=== PATIENT | male | born 1965 | race Caucasian/White ===

== ENCOUNTER 2022-03-20 21:19 | Observation (INO) | payer OTHER, SELFPAY ==
[2022-03-20 21:25] VITALS: BP 181/100; PULSE 74; RESP 16; TEMP 36.9; O2SAT 99; BMI 31.1
[2022-03-20 21:39] VITALS: BP 181/100; PULSE 69; O2SAT 97
[2022-03-20 21:42] VITALS: BMI 31.1
--- NOTE | 2022-03-20 21:42 | DI.RAD.S_ITS ---
PROCEDURE: XR HIP W PEL IF DONE LT 2V INDICATIONS: fell 4 feet to left side,unable to bear wt. TECHNIQUE: AP pelvis with lateral views of the left hip. COMPARISON: [facility], , XR SACRUM COCCYX MIN 2V, 03/20/2022, 22:01. FINDINGS: Bones: No definite fracture or dislocation in the hip. There is a suspected minimally displaced fracture in the left sacrum. No suspicious bony lesions. Soft tissues: The visualized bowel gas pattern is normal. No suspicious soft tissue calcifications. IMPRESSION: 1. No definite fracture or dislocation the hip. 2. Suspected minimally displaced left sacral fracture. Further evaluation may be obtained with CT if clinically indicated. Dictated by: Richard Chun M.D. on 03/20/2022 at 23:21 Approved by: Richard Chun M.D. on 03/20/2022 at 23:22
[2022-03-20 22:00] VITALS: PULSE 76; O2SAT 97
--- NOTE | 2022-03-20 22:05 | DI.RAD.S_ITS ---
PROCEDURE: XR SACRUM COCCYX MIN 2V INDICATIONS: fall with hip and back pain. TECHNIQUE: 3 views of the sacrum and coccyx acquired. COMPARISON: None. FINDINGS: Bones: There is a suspected minimally displaced fracture in the left sacral ala. Soft tissues: Visualized bowel gas pattern is normal. No suspicious soft tissue densities. IMPRESSION: 1. Suspected minimally displaced left sacral ala fracture. Dictated by: Richard Chun M.D. on 03/20/2022 at 23:23 Approved by: Richard Chun M.D. on 03/20/2022 at 23:24
[2022-03-20 22:30] VITALS: PULSE 75; O2SAT 95
--- NOTE | 2022-03-20 22:55 | DI.RAD.S_ITS ---
PROCEDURE: XR WRIST LT MIN 3V INDICATIONS: wrist pain TECHNIQUE: 4 views of the wrist were acquired. COMPARISON: None. FINDINGS: Bones: There is a mildly displaced fracture fragment dorsally likely reflecting a triquetral fracture. No suspicious bony lesions. Scaphoid view: The scaphoid appears intact. Soft tissues: There is mild dorsal soft tissue swelling. IMPRESSION: 1. Small dorsal fracture fragment compatible with a triquetral fracture. Dictated by: Richard Chun M.D. on 03/20/2022 at 23:46 Approved by: Richard Chun M.D. on 03/20/2022 at 23:47
[2022-03-20 23:00] VITALS: PULSE 69; O2SAT 97
[2022-03-20 23:30] VITALS: PULSE 68; O2SAT 96
--- NOTE | 2022-03-20 23:40 | DI.CT.S_ITS ---
PROCEDURE: CT PEL WO CON INDICATIONS: Fall/left-sided pain TECHNIQUE: Noncontrast 3 mm axial sections acquired through the bony pelvis, with coronal and sagittal reformatting. COMPARISON: [facility], CR, XR HIP W PEL IF DONE LT 2V, 03/20/2022, 21:53. FINDINGS: Image quality: Excellent. Bones: There is a minimally displaced fracture of the left sacral ala. There is a nondisplaced fracture line extending into the left posterior elements. Additional mildly displaced pelvic ring fractures are also demonstrated within the left superior and inferior pubic rami. The hips demonstrate no fracture or dislocation. Soft tissues: No soft tissue hematoma collections. No intraperitoneal free fluid within the visualized pelvis. Visualized musculature appears preserved. IMPRESSION: 1. Left pelvic ring fractures involving the left sacrum as well as the left superior and inferior pubic rami. Dictated by: Richard Chun M.D. on 03/21/2022 at 0:23 Approved by: Richard Chun M.D. on 03/21/2022 at 0:30
--- NOTE | 2022-03-20 23:41 | ED.LOWEXIN ---
HPI - Extremity Injury (Lower) General Chief Complaint: Extremity Injury, Lower Stated Complaint: FALL LEFT HIP INJURY Time Seen by Provider: 03/20/22 23:09 Source: patient Mode of arrival: Wheelchair History of Present Illness HPI Narrative: Patient here with . 12 hours ago was walking on the day, tripped and fell on the concrete. Landing on his left hip and hemipelvis. Also complains of left wrist pain. Denies any other injuries. Related Data Home Medications Medication Instructions Recorded Confirmed No Known Home Medications 03/21/22 03/21/22 Allergies Allergy/AdvReac Type Severity Reaction Status Date / Time No Known Drug Allergies Allergy Verified 03/20/22 22:06 Review of Systems Review of Systems Narrative: GENERAL: Denies chills, fatigue, malaise, fever, sweats. HEENT: Denies sinus pain, ear pain, sore throat RESPIRATORY: Denies dyspnea, cough CARDIOVASCULAR: Denies chest pain, palpitations GASTROINTESTINAL: Denies nausea, vomiting, abdominal pain : Denies dysuria, frequency, hematuria MUSCULOSKELETAL: Positive for muscle or bony pain SKIN: Denies rash, skin lesions NEUROLOGIC: Denies weakness, numbness ROS Unobtainable: All systems reviewed & are unremarkable except as noted in HPI and below Patient History Medical History History of cardioversion Hypertrophic cardiomyopathy Surgical History History of cardiac radiofrequency ablation Social History household members: spouse Smoking Status: Never smoker alcohol intake: former Smoking Status: Never smoker Substance Use Type: does not use Exam Narrative Exam Narrative: GENERAL: in no distress, not toxic not dyspneic HEAD: Normocephalic. EYES: Pupils equal round No scleral icterus. ENT: Mucous membranes moist. NECK: Trachea midline. CARDIOVASCULAR: Regular rate and rhythm without murmurs RESPIRATORY: Clear to auscultation. Breath sounds equal bilaterally. No wheezes, rales, or rhonchi. GASTROINTESTINAL: Abdomen soft, non-tender EXTREMITIES: No gross deformities. Pants are removed. There is no tenderness to the left hip. No bruising to the left hip. No shortening or rotation of the legs or feet. There is tenderness to the left sacral area. Examination of the knees. Able to flex and extend at both knees. Small abrasions over the knees. Examination of left wrist. Full active range of motion no gross deformity strong server developer and radial pulse with light touch intact to fingers and thumb BACK: No flank tenderness. NEURO: AOx4. SKIN: Warm and dry PSYCH: Not anxious, is cooperative Initial Vital Signs Initial Vital Signs: Vital Signs Temperature 98.4 F 03/20/22 21:25 Pulse Rate 74 03/20/22 21:25 Respiratory Rate 16 03/20/22 21:25 Blood Pressure 181/100 H 03/20/22 21:25 Pulse Oximetry 99 03/20/22 21:25 Oxygen Delivery Method 03/20/22 21:25 Course Course Course Narrative: No new issues during course of stay Orders Ordered: ED Orders 03/20/22 22:05 XR sacrum coccyx min 2V Stat 03/20/22 22:55 XR wrist LT min 3V Stat 03/20/22 23:40 CT pelvis wo con Stat 03/21/22 03:11 Consult to Physician Routine 03/21/22 03:12 Consult to Physical Therapy Evaluate & Treat 03/21/22 03:50 CBC Auto Diff [Complete Blood Count AUTO DIFF] Stat CMP [Comprehensive Metabolic Panel] Stat COVID19 -Nasal RAPID/Pre-Proc Stat 03/22/22 05:00 Basic Metabolic Panel DAILY Complete Blood Count AUTO DIFF DAILY 03/23/22 05:00 Basic Metabolic Panel DAILY Complete Blood Count AUTO DIFF DAILY Acetaminophen (Acetaminophen 325 Mg Tablet) 650 mg PO Q6H DIGNA Last Admin: 03/21/22 06:37 Dose: 650 mg Documented By: MS Docusate Sodium (Docusate 100 Mg Capsule) 100 mg PO BID [facility] Enoxaparin Sodium (Enoxaparin 40 Mg/0.4 Ml Syringe) 40 mg SUBCUT DAILY [facility] Hydromorphone HCl (Hydromorphone 1 Mg Inj) 1 mg IV Q4H PRN PRN Reason: Pain, Moderate (4-6) Last Admin: 03/21/22 03:46 Dose: 1 mg Documented By: EB Hydromorphone HCl (Hydromorphone 0.5 Mg Inj) 0.5 mg IV Q4H PRN PRN Reason: Pain, Moderate (4-6) Ondansetron HCl (Ondansetron 4 Mg/2 Ml Inj) 4 mg IV Q4HR PRN PRN Reason: Nausea And Vomiting Oxycodone HCl (Oxycodone Ir 5 Mg Tablet) 5 mg PO Q4HR PRN PRN Reason: Pain, Moderate (4-6) Last Admin: 03/21/22 06:36 Dose: 5 mg Documented By: Sennosides (Sennosides 8.6 Mg Tablet) 17.2 mg PO BEDTIME DIGNA Sodium Chloride (Sodium Chloride 0.9% Flush) 10 ml IV BID [facility] Tramadol HCl (Tramadol 50 Mg Tablet) 50 mg PO QID PRN PRN Reason: Pain, Moderate (4-6) Discontinued Medications Hydromorphone HCl (Hydromorphone 1 Mg Inj) 1 mg IV NOW ONE Stop: 03/20/22 23:41 Last Admin: 03/20/22 23:51 Dose: 1 mg Documented By: ROBIN Hydromorphone HCl (Hydromorphone 1 Mg Inj) 1 mg IV NOW ONE Stop: 03/21/22 03:26 Last Admin: 03/21/22 06:17 Dose: Not Given Documented By: Ondansetron HCl (Ondansetron 4 Mg/2 Ml Inj) 4 mg IV NOW ONE Stop: 03/20/22 23:41 Last Admin: 03/20/22 23:51 Dose: 4 mg Documented By: ROBIN Reevaluation(s) Reevaluation #1: Spoke with patient and . Agree for admit for pain control and physical therapy evaluation as well as social work. As well as orthopedic evaluation Time: 02:20 Consultations Consultation #1: Spoke with Dr. Hope, Orthopedics. Would be prudent to admit for pain control as well as social work and Physical therapy evaluation. Time: 02:02 Consultation #2: Spoke with hospitalist, Will board patient in the emergency department for admission and consult Orthopedics Time: 02:18 Vital Signs Vital signs: Vital Signs - 8 hr 03/20/22 23:00 03/20/22 23:30 03/21/22 00:09 Pulse Rate 69 68 75 Blood Pressure Pulse Oximetry 97 96 98 03/21/22 00:30 03/21/22 01:00 03/21/22 01:30 Pulse Rate 77 68 65 Blood Pressure Pulse Oximetry 96 96 96 03/21/22 02:00 03/21/22 02:30 03/21/22 02:36 Pulse Rate 62 61 Blood Pressure 159/87 H Pulse Oximetry 99 98 03/21/22 02:36 03/21/22 03:00 Pulse Rate 73 64 Blood Pressure Pulse Oximetry 97 98 MDM - Extremity Injury (Lower) Differential Diagnosis Differential diagnosis: Likely other (Wrist fracture/pelvis fracture/hip fracture/contusions/abrasions) Lab Data Result diagrams: 03/21/22 03:50 03/21/22 03:50 Imaging Data Extremity x-ray #1: Radiologist's Impression: [address] [id number] XRay Report Signed Patient: Js Robles MR#: [id number] : 1965 Acct:[id number] Age/Sex: 56 / M Date of Service: 03/20/22 Loc: ED Accession Number: [id number] ?? Procedure: XR hip w pel if done LT 2V Ordering Provider: Josue Snider MD PROCEDURE:? XR HIP W PEL IF DONE LT 2V ? INDICATIONS:? fell 4 feet to left side,unable to bear wt. ? TECHNIQUE:? AP pelvis with lateral views of the left hip. ? COMPARISON:? [facility], CR, XR SACRUM COCCYX MIN 2V, 03/20/2022, 22:01. ? FINDINGS:? ? Bones:? No definite fracture or dislocation in the hip.? There is a suspected minimally displaced fracture in the left sacrum.? No suspicious bony lesions.? ? Soft tissues:? The visualized bowel gas pattern is normal.? No suspicious soft tissue calcifications.? ? ? IMPRESSION:? ? 1. No definite fracture or dislocation the hip. ? 2. Suspected minimally displaced left sacral fracture.? Further evaluation may be obtained with CT if clinically indicated. ? ? ? Dictated by: Richard Chun M.D. on 03/20/2022 at 23:21 ? ? Approved by: Richard Chun M.D. on 03/20/2022 at 23:22 ? Extremity x-ray #2: Radiologist's Impression: [address] [address] XRay Report Signed Patient: Js Robles MR#: [id number] : 1965 Acct:[id number] Age/Sex: 56 / M Date of Service: 03/20/22 Loc: ED Accession Number: [id number] ?? Procedure: XR sacrum coccyx min 2V Ordering Provider: Josue Snider MD PROCEDURE:? XR SACRUM COCCYX MIN 2V ? INDICATIONS:? fall with hip and back pain. ? TECHNIQUE:? 3 views of the sacrum and coccyx acquired.? ? COMPARISON:? None. ? FINDINGS:? ? Bones:? There is a suspected minimally displaced fracture in the left sacral ala. ? Soft tissues:? Visualized bowel gas pattern is normal.? No suspicious soft tissue densities.? ? IMPRESSION:? ? 1. Suspected minimally displaced left sacral ala fracture. ? ? Dictated by: Richard Chun M.D. on 03/20/2022 at 23:23 ? ? Approved by: Richard Chun M.D. on 03/20/2022 at 23:24 ? Extremity x-ray #3: Radiologist's Impression: [address] Scan ReportSigned Patient: Jam Lou [facility]#: [id number]: 01/23/1963Acct:[id number]/Sex: 59 / MDate of Service: 03/20/22Loc: EDAccession Number: [id number] Procedure: CT abdomen pelvis w con Ordering Provider: Josue Snider MD PROCEDURE: CT ABDOMEN PELVIS W CON INDICATIONS: IV contrast only/left lower quadrant pain TECHNIQUE: After the administration of IV contrast, axial sections were acquired from the lung bases to the pubic symphysis. Coronal and sagittal reformats were performed. For radiation dose reduction, the following was used: automated exposure control, adjustment of mA and/or kV according to patient size. COMPARISON: [facility], CT, CT ABDOMEN PELVIS W CON, 05/27/2020, 8:43. FINDINGS: Image quality: Excellent. Lung bases: There is mild dependent atelectasis. Heart: Heart is normal in size. ABDOMEN: Liver: No mass lesion. Gallbladder: Within normal limits without calcified gallstones. Biliary ducts: No biliary ductal dilatation. Pancreas: Unremarkable. Spleen: Normal in size. Adrenal Glands: No adrenal nodules. Kidneys and Ureters: No hydronephrosis. Stomach and Bowel: Stomach and small bowel loops are normal in caliber and wall thickness. The appendix is normal in appearance. There is colonic diverticulosis throughout the colon with associated diverticular and segmental colonic wall thickening in the proximal transverse colon with extensive pericolonic fat stranding and a small amount of pericolonic free fluid. Findings are consistent with acute diverticulitis. Peritoneum: No diverticular abscess or macroscopic free air. There is a small amount of pericolonic free fluid. Ventral Wall: No hernia. Abdominal Nodes: No retroperitoneal or mesenteric adenopathy by size criteria. Vessels: Aorta and inferior vena cava are normal in size. PELVIS: Pelvic Organs: Unremarkable. Bladder: Unremarkable. Pelvic Nodes: No enlarged lymph nodes. Miscellaneous: No inguinal hernias are seen. Bones: Visualized osseous structures demonstrate no suspicious focal lesions. IMPRESSION: 1. Acute diverticulitis in the proximal transverse colon without evidence of diverticular abscess or macroscopic free air. 2. Given the degree of wall thickening in this region, consider follow-up colonoscopy to exclude an underlying mass. Dictated by: Richard Chun M.D. on 03/20/2022 at 23:39 Approved by: Richard Chun M.D. on 03/20/2022 at 23:45 CT pelvis: Radiologist's Impression: [place] [address] CT Scan Report Signed Patient: Js Robles MR#: [id number] : 1965 Acct:[id number] Age/Sex: 56 / M Date of Service: 03/20/22 Loc: ED Accession Number: [id number] ?? Procedure: CT pelvis wo con Ordering Provider: Josue Snider MD PROCEDURE:? CT PEL WO CON ? INDICATIONS:? Fall/left-sided pain ? TECHNIQUE:? Noncontrast 3 mm axial sections acquired through the bony pelvis, with coronal and sagittal reformatting.? ? COMPARISON:? [facility], CR, XR HIP W PEL IF DONE LT 2V, 03/20/2022, 21:53. ? FINDINGS:? Image quality:? Excellent.? ? Bones:? There is a minimally displaced fracture of the left sacral ala.? There is a nondisplaced fracture line extending into the left posterior elements.? Additional mildly displaced pelvic ring fractures are also demonstrated within the left superior and inferior pubic rami.? The hips demonstrate no fracture or dislocation. ? Soft tissues:? No soft tissue hematoma collections.? No intraperitoneal free fluid within the visualized pelvis.? Visualized musculature appears preserved. ? ? IMPRESSION:? ? 1. Left pelvic ring fractures involving the left sacrum as well as the left superior and inferior pubic rami. ? ? ? Dictated by: Richard Chun M.D. on 03/21/2022 at 0:23 ? ? Approved by: Richard Chun M.D. on 03/21/2022 at 0:30 ? MDM Narrative Medical decision making narrative: Appropriate for admission for physical therapy as well as for social work. Reviewed with orthopedics and hospitalist. Discharge Plan Departure Patient Disposition: Admitted as Observation Clinical Impression: Closed pelvic fracture, Fracture of left wrist Admit Date/Time: 03/21/22 03:13 Admit Provider: Betty Nielsen
[2022-03-20] MEDS: HYDROMORPHONE 1 MG INJ IV (23:51)
[2022-03-20] MEDS: ONDANSETRON 4 MG/2 ML INJ IV (23:51)
[2022-03-21] VITALS (18 sets, daily range): BP systolic 123–159; BP diastolic 68–87; PULSE 52–77; RESP 16–18; TEMP 35.9–37.1; O2SAT 93–99; BMI 31.1
[2022-03-21] MEDS: HYDROMORPHONE 1 MG INJ IV (03:46)
[2022-03-21 04:00] LABS: Add Manual Diff / Slide Review NO; Basophils Absolute Auto 0 /uL (0-100); Basophils Percent Auto 0.3 % (0-2); Eosinophils Absolute Auto 100 /uL (0-450); Eosinophils Percent Auto 1.2 % (2-4); Hematocrit 42.8 % (41-53); Hemoglobin 14.9 g/dL (13.5-17.5); Lymphocytes Absolute Auto 1400 /uL (1100-4500); Lymphocytes Percent Auto 15.7 % (25-40); Mean Corpuscular HGB Conc 34.9 % (30-36); Mean Corpuscular Hemoglobin 30.5 PG (26-34); Mean Corpuscular Volume 87.5 fL (80-100); Monocytes Absolute Auto 800 /uL (0-900); Monocytes Percent Auto 8.3 % (3-14); Neutrophils Absolute Auto 6800 /uL (1500-7000); Neutrophils Percent Auto 74.5 % (50-75); Platelet Count 162 X10^3/uL (150-400); Red Blood Cell Count 4.88 X10^6/uL (4.5-5.9); Red Cell Distribution Width 13.2 % (11.6-14.8); White Blood Cell Count 9.1 X10^3/uL (4.5-11.0)
[2022-03-21 04:12] LABS: Alanine Aminotransferase 26 IU/L (<50); Albumin 3.9 g/dL (3.5-5.0); Albumin Globulin Ratio 1.6 (1.0-2.8); Alkaline Phosphatase 50 U/L (38-126); Aspartate Aminotransferase 32 IU/L (17-59); BUN Creatinine Ratio 26.8 (6-22); Bilirubin Total 0.8 mg/dL (0.2-1.3); Blood Urea Nitrogen 19 mg/dL (9-20); Calcium 7.7 mg/dL (8.4-10.2); Carbon Dioxide 24 mmol/L (22-32); Chloride 104 mmol/L (98-107); Estimated Glomerular Filt Rate > 60 mL/min (>60); Globulin 2.5 g/dL (1.7-4.1); Glucose 110 mg/dL (70-100); HEMOLYSIS 25 (0-50); Potassium 3.7 mmol/L (3.4-5.1); Sodium 136 mmol/L (137-145); Total Protein 6.4 g/dL (6.3-8.2)
[2022-03-21 04:15] LABS: COVID19 -Nasal RAPID Negative (Negative)
--- NOTE | 2022-03-21 04:35 | P.HP_ITS ---
History of Present Illness History of Present Illness Date Patient Seen: 03/21/22 Time Patient Seen: 04:36 Chief complaint: FALL LEFT HIP INJURY Narrative: Js Robles is 56-year-old male with a history of hypertrophic cardiomyopathy apparently treated with a cardiac alcohol ablation and cardioversion several years ago was in his usual state of health when he tripped, falling on his left side and fracturing both his pelvis and his left wrist. He denies hitting his head or blacking out. He has had little bit and nausea due to the pain. Denies any dysuria diarrhea or constipation. Denies having his leg give out on him. He states that he actually tripped with his foot. Patient has had a history of the alcohol cardiac ablation, he is currently not taking any medications but sees Dr. Knowles annually and just underwent went having a new echocardiogram done. He states that the medication side effects were worse than treating the issue and that ever since he started taking a dirk supplement, his murmur has gone away. X-ray of the left wrist indicated a Small dorsal fracture fragment compatible with a triquetral fracture.CT of the pelvis indicated left pelvic ring fractures involving the left sacrum as well as the left superior and inferior pubic rami. There is also a suspected minimally displaced left sacral ala fracture noted on the sacrum and coccyx x-ray. Patient is afebrile, blood pressure 136/85, heart rate 70, respiratory 18, oxygen saturation 97% on room air he weighs 104.3 kg with a BMI of 31.1. CBC is unremarkable, sodium 136, glucose 110, calcium 7.7, and COVID-19 PCR is negative. Patient History Medical History History of cardioversion Hypertrophic cardiomyopathy Surgical History History of cardiac radiofrequency ablation Family & Social History Social History: household members spouse Prior Living Arrangements RV Safety & Behavioral: Feels Safe in Current Yes Environment Tobacco & Substance use: Smoking Status Never smoker alcohol intake former Substance Use Type does not use Meds Home Medications and Allergies Allergies Allergy/AdvReac Type Severity Reaction Status Date / Time No Known Drug Allergies Allergy Verified 03/20/22 22:06 Review of Systems Review of Systems ROS: Yes All systems reviewed with the patient and are negative except as otherwise documented Exam Vital Signs (past 8 hours): - 03/20/22 21:25 03/20/22 21:39 03/20/22 21:39 Temperature 98.4 F Pulse Rate 74 69 Respiratory Rate 16 Blood Pressure 181/100 H 181/100 H Pulse Oximetry 99 97 Oxygen Delivery Method Room Air Oxygen Flow Rate 03/20/22 22:00 03/20/22 22:30 03/20/22 23:00 Temperature Pulse Rate 76 75 69 Respiratory Rate Blood Pressure Pulse Oximetry 97 95 97 Oxygen Delivery Method Oxygen Flow Rate 03/20/22 23:30 03/21/22 00:09 03/21/22 00:30 Temperature Pulse Rate 68 75 77 Respiratory Rate Blood Pressure Pulse Oximetry 96 98 96 Oxygen Delivery Method Oxygen Flow Rate 03/21/22 01:00 03/21/22 01:30 03/21/22 02:00 Temperature Pulse Rate 68 65 62 Respiratory Rate Blood Pressure Pulse Oximetry 96 96 99 Oxygen Delivery Method Oxygen Flow Rate 03/21/22 02:30 03/21/22 02:36 03/21/22 02:36 Temperature Pulse Rate 61 73 Respiratory Rate Blood Pressure 159/87 H Pulse Oximetry 98 97 Oxygen Delivery Method Oxygen Flow Rate 03/21/22 03:00 03/21/22 03:30 03/21/22 04:09 Temperature 97.9 F Pulse Rate 64 66 70 Respiratory Rate 18 Blood Pressure 136/85 Pulse Oximetry 98 93 97 Oxygen Delivery Method Oxygen Flow Rate 0 Oxygen Delivery Method Room Air Oxygen Flow Rate 0 Narrative Exam Narrative: Gen: Alert, oriented, well-developed 56 y.o. male, NAD HEENT: normocephalic, atraumatic, conjunctiva clear, sclera non-icteric, front gums are edentulous, oral mucosa pink and moist Neck: supple, full ROM, no JVD, trachea is midline Resp: Lungs CTA, non-labored breathing CV: RRR, no murmur or rubs Abd: soft, non-tender, normoactive BTs Skin: Bronzed, no lesions or rashes, dry and intact Neuro: Alert and oriented X 4 w/no focal deficits. Speech clear and coherent. Extremities: left lower arm is splinted, moves all 4 extremities, is normally ambulatory, negative Kristal?s sign Psyche: normal mood and affect. Objective Labs Result Diagrams: 03/21/22 03:50 08/09/22 03:50 Labs: Laboratory Results - last 24 hr 03/21/22 03/21/22 03/21/22 03:50 03:50 03:50 WBC 9.1 RBC 4.88 Hgb 14.9 Hct 42.8 MCV 87.5 MCH 30.5 MCHC 34.9 RDW 13.2 Plt Count 162 Neut % (Auto) 74.5 Lymph % (Auto) 15.7 L [place] % (Auto) 8.3 Eos % (Auto) 1.2 L Baso % (Auto) 0.3 Neut # (Auto) 6800 Lymph # (Auto) 1400 [place] # (Auto) 800 Eos # (Auto) 100 Baso # (Auto) 0 Sodium 136 L Potassium 3.7 Chloride 104 Carbon Dioxide 24 BUN 19 Creatinine 0.71 Estimated GFR > 60 BUN/Creatinine Ratio 26.8 H Glucose 110 H Calcium 7.7 L Total Bilirubin 0.8 AST 32 ALT 26 Alkaline Phosphatase 50 Total Protein 6.4 Albumin 3.9 Globulin 2.5 Albumin/Globulin Ratio 1.6 SARS-CoV-2 (PCR) Negative Assessment & Plan Assessment & Plan narrative: Js Robles is a 56 y.o. male who will be observed for further evaluation of his left wrist fracture and for a PT assessment of progress towards ambulation in the setting of a pelvic ring fracture. Left wrist fracture, acute and present on admission * Dr. Hope to see the patient later today * Pain control with oral tylenol, tramadol, IV morphine and dilaudid * Prophylaxis for opioid induced constipation Pelvic ring fracture, acute and present on admission * See above * Fracture not likely operable, will require pain control and early ambulation History of hypertrophic cardiomyopathy * Patient will be monitored, will need to wait until am discharges for a telemetry box VTE Prophylaxis: Wells risk score 0 Enoxaparin 40 mg subQ once daily Bilateral SCDs Patient is placed into observation as his stay is not expected to exceed 2 midnights. FEN: IV fluids: saline lock, diet: general, labs: CBC, C/BMP, liver enzymes, Mag, PT/INR Consultants Dr. Hope, orthopedic surgery care and involvement in the patient?s care is appreciated. Dispo: probable discharge to home Code status: Full code as discussed with the patient who identifies his spouse, Sharmila as her surrogate and POA. [X] I have utilized all available immediate resources to obtain, update, or review of the patient's current medications COVID-19 COVID-19 status: Negative Result date/Date tested (Pos, Neg/Pending): 03/21/22 Scores Wells' Criteria for PE Clinical signs and symptoms of DVT: No PE is #1 Dx or equally likely: No Heart rate > 100: No Immobilization at least 3 days or surg in previous 4 weeks: No History of PE or DVT: No Hemoptysis: No Malignancy w/Treatment within 6 months or palliative: No Wells' PE Score total: 0 Quality VTE Deep Vein Thrombosis/Pulmonary Embolism Present on Admission: No MIPS - Admit I confirm the patient?s Advance Care Plan is present, Code status is documented, Surrogate decision maker is in patient?s record [If Yes, STOP here]: Yes MIPS - DC The patient has current or prior documentation of left ventricular ejection fraction (LVEF) less than 40%, or moderate or severely depressed left ventricular systolic function.: No
[2022-03-21] MEDS: OXYCODONE IR 5 MG TABLET PO ×2 (06:36→10:37)
[2022-03-21] MEDS: ACETAMINOPHEN 325 MG TABLET 650 MG PO ×4 (06:37→22:58)
[2022-03-21] MEDS: SODIUM CHLORIDE 0.9% FLUSH 10 ML IV ×2 (08:28→21:10)
[2022-03-21] MEDS: DOCUSATE 100 MG CAPSULE PO ×2 (08:28→21:10)
--- NOTE | 2022-03-21 10:59 | PT.IIE ---
Surgical History (Last Reviewed 03/21/22 @ 04:43 by SHAUNA Humphries) History of cardiac radiofrequency ablation Medical History (Last Reviewed 03/21/22 @ 04:43 by SHAUNA Humphries) History of cardioversion Hypertrophic cardiomyopathy Physical Therapy Inpatient Evaluation/Re-Eval M1 PT/OT-IP Prior Functional Status Start: 03/21/22 12:43 Freq: NEEDED Status: Active Protocol: Document 03/21/22 10:59 AB (Rec: 03/21/22 13:04 AB [id number]) Medical Review Prior Functional Status Medical History Reviewed Yes Communication able tomake needs known Social History Household Members spouse Living Arrangements RV Number of Floors (Floors) Two Floors Number of Stairs To Enter/Railing? 3 steps to enter without rails but has L side door grab bar (spouse stated that at the moment, somebody is looking into it to put a ramp on) 3 steps with R rail to get to the toilet/shower (spouse has a bedside commode for pt to use and does not have to to up to the toilet level) Home Environment Standard Height Toilet,Walk in Shower,Built-In Shower Seat Home Equipment Hand Held Shower,Grab Bars In Shower Additional Social History Comment pt plans to sleep on his recliner spouse stated that they are trying to put a ramp in right now but the other option is have a lift machine lift pt up to the house while sitting on a w/c. M2 PT-IP Current Condition Start: 03/21/22 12:43 Freq: NEEDED Status: Active Protocol: Document 03/21/22 10:59 AB (Rec: 03/21/22 13:04 AB [id number]) Physical Therapy Current Condition Current Condition Evaluation Date 03/21/22 Treatment Diagnosis L pelvic fx; L wrist fx; difficulty n walking Onset Date 03/21/22 M3 PT-IP Subjective Start: 03/21/22 12:43 Freq: NEEDED Status: Active Protocol: Document 03/21/22 10:59 AB (Rec: 03/21/22 13:04 AB [id number]) Subjective Physical Therapy Visit Type Type Initial Evaluation Visit Start Time 10:59 Visit Stop Time 12:00 Total Visit Minutes 61 Number of CUSTOMER GREETER Visits 0 Physical Therapy Visit Comments Patient Comments agreeable to do PT M4 PT-IP Mobility and Gait Start: 03/21/22 12:43 Freq: NEEDED Status: Active Protocol: Document 03/21/22 10:59 AB (Rec: 03/21/22 13:04 AB [id number]) PT-Bed Mobility Assessment Supine to Sit Supine to Sit Standby Assistance,Bedrails PT-Transfer Assessment Sit to and From Stand Sit to and from Stand Moderate Assistance,Maximum Assistance,1 Person Assistance ,Use of Upper Extremities Equipment Transfer Assistive Device Gait Belt,Platform Walker Orthotic/Prosthetic Devices or Brace: Yes Transfers Transfer Destination Chair Transfer Technique Stand Step Pivot Transfer Ability Level of Assist Moderate Assistance,Maximum Assistance,1 Person Assistance ,Use of Upper Extremities Comments Mobility Comments completed supine to sit SBA. needs increase time to complete tasks. educated on weight bearing restrictions. LLE: 50# PWB explained to pt that if unable to maintain, can do NWB for safety. pt understood. completed sit to stand max A and max cues and step transfer using PFW max a and cues. R knee varus noted. completed sit to stand from chair mod A and cues and able to ambulate using PFW ~ 4 ft forward and then backwards mod A. agreed to sit up on chair. positioned. call light and table placed within reach. caregiver training set up with spouse this afternoon at 130pm. informed spouse regarding equipement needs: w/ c, bedside commode, PFW. spouse understood and agreed. Gait Assessment Gait Gait Assistance Required: Moderate Assistance,1 Person Assist Distance (Feet) 8 Able to Maintain Weight Bearing Status Yes During Gait Assistive Devices Assistive Device Gait Belt,Platform Walker Orthotic/Prosthetic Devices or Brace: Yes Gait Deviations General Gait Pattern Decreased Stride Length, Decreased Feet Clearance Factors Limiting Gait Function Factors Limiting Gait Function Decreased Activity Tolerance, Decreased Strength,Limited Range of Motion,Pain,Poor Balance PT-Balance Assessment Sitting Balance and Reactions Static Sitting Balance Ability Good Dynamic Sitting Balance Ability Good Standing Balance and Reactions Static Standing Balance Ability Fair Dynamic Standing Balance Ability Poor Device Used PFW M5 PT-IP Objective Assessments Start: 03/21/22 12:43 Freq: NEEDED Status: Active Protocol: Document 03/21/22 10:59 AB (Rec: 03/21/22 13:04 AB [id number]) Orientation Orientation/Cognition Level of Alertness Alert Orientation Name,Place,Situation Language Function Ability No Deficits Noted Safety Awareness Decreased Safety Awareness Memory Description No Deficits Noted Gross Range of Motion Lower Extremity ROM Assessment Within Functional Limits Strength Lower Extremity Strength Assessment Left Impaired Hip 3+/5 Knee 4-/5 Muscle Tone Muscle Tone WNL Yes M6 PT-IP Treatment Start: 03/21/22 12:43 Freq: NEEDED Status: Active Protocol: Document 03/21/22 10:59 AB (Rec: 03/21/22 13:04 AB [id number]) Physical Therapy Treatment Education Education Provided Precautions,Weight Bearing Status,Safety M7 PT-IP Assessment and Plan Start: 03/21/22 12:43 Freq: NEEDED Status: Active Protocol: Document 03/21/22 10:59 AB (Rec: 03/21/22 13:04 AB [id number]) PT Summary Assessment and Plan Potential Rehabilitation Potential Fair Status of Condition at Evaluation Evolving Summary Impairments Pain,ROM,Strength,Balance, Coordination,Sensation,Tone, Cognition,Bed Mobility, Transfers,Gait,Activity Tolerance Assessment Summary pt requiring mod to max A for mobility using PFW. caregiver training set up at 130 pm this afternoon. will continue to assess progress. pt and spouse are aware of equipement needs . pt also will benefit from HHPT. Goals Bed Mobility Goal Independent Transfer Goal Independent,Front Wheeled Walker Gait Goal Independent,Front Wheel Walker Gait Distance 50 Other Goals ambulation goals using PFW Days to Meet Goals 5 Frequency of Treatment Frequency Of Treatment Twice a Day Treatment Plan Physical Therapy Treatment Plan Bed Mobility Training,Transfer Training,Gait Training, Therapeutic Exercise,Balance Retraining,Post Op Education, Discharge Planning,Hot or Cold Pack,Neuromuscular Re-ed, Coordination Retraining,Manual Therapy Weight Bearing Status Weight Bearing Status Non-Weight Bearing Allowed Weight Bearing Amount (enter % LUE: NWB or #) (%) LLE: 50# PWB: opted NWB as pt unable to safely do PWB: pt able to maintain NWB. Recommendations To Nursing Amount of Assist Needed 1 Person Assist Discharge Recommendations PT Discharge Recommendations Home with 05/03 Assist Available,Home Health Equipment Needed for Home Before PFW Discharge Transportation Needs at Discharge Private Vehicle
--- NOTE | 2022-03-21 11:15 | CM.DANOTE ---
Patient is a 56 yo male who was admitted on 03/21/22 for GLF/Hip injury. Pt has PRE DIM for insurance and his PCP is not listed. EMR was reviewed. Per MD, pt with a hx of cardio ablation and tripped and fell with a pelvic hip fx and wrist fx. Ortho to consult and Dr Hope met bedside and confirms no surgical intervention needed at this time and will provide weightbearing status and requested RN to order PT/OT to determine d/c planning needs. SW met bedside with pt and spouse and explained role and they confirm they live in [place] in a trailer on some property and have adult son and Dtr who also live on the property but in their own trailers but could be available for assist if needed. Spouse is an ROASTER SUPERVISOR who used to be a type copy examiner at a hospital and now works time analysis clerk at a [employer] and therefore will be gone 4 days a week for 10 hour shifts but confirms other local family can assist. Pt is independent at baseline with ADLs and drives and denies any hx of HH or SNF. SW discussed PT/OT evals towards determining d/c planning needs and discussed HH and SNF. Pt and spouse state preference is home with HH and currently have someone creating a w/c ramp into their trailer and spouse has a friend dropping off a bedside commode. Pt and spouse aware that PT/OT will be completing CG training prior to d/c to confirm pt safe for home. Plan: SW to follow closely for PT/OT eval and recommendations towards determining likely home with HH vs potential SNF pending pt's progress and needs. YARELY Christianson Discharge Planning/Care Management CM Discharge Assessment Start: 03/21/22 11:12 Freq: Status: Active Protocol: Document 03/21/22 11:13 BF (Rec: 03/21/22 11:15 BF [id number]) Discharge Planning Assessment Assigned Bar Tacker YARELY Chavez DPOA/Assigned Designee Name spouse Sharmila Contact Information [phone] Advance Directives? No Advance Directives on File No History Provided By Patient,Significant Other, Medical Record Has Patient been admitted in last 30 No days? Prior Living Arrangements RV Household Members spouse Type of transporation used prior to Drives own vehicle admit Independent with ADL's Yes Is patient alert and oriented? Yes Caregiver for Another No Patient/Family Preference Home with Home Health Barriers to Discharge No Discharge Plan Home with Home Health Community Services Physical Therapy,Occupational Therapy Transportation Arrangement Spouse bedside and plans to transport if safe Referrals Initiated Home Health Medicare Choice List Provided Yes Whiteboard Updated in Patient Room with Yes name and ext. # of Bar Tacker Review Status In Process Please Provide Date Initial DC 03/21/22 Assessment Was Performed Next Review Type Continued Stay Review
[2022-03-21] MEDS: HYDROMORPHONE 0.5 MG INJ IV (11:39)
--- NOTE | 2022-03-21 11:51 | OT.IPNOTE ---
Awaiting consult from Ortho for weight bearing status for pt needs, To check on the pt tomorrow for OT eval.
--- NOTE | 2022-03-21 12:20 | OT.IPNOTE ---
Went to see pt and already has left volar splint on. Able to talk to pt and his regarding equipment needs for home -use FWW with left platform, wc, bsc, airways control specialist, and urinal. Pt's given DME equipment list. Pt states already has a lift to get him into the trailer within 3 steps. Pt just getting lunch and to work on showering and dressing needs with pt tomorrow. NO charge. Per pt states doctor states that pt is 50lb weight bearing and not to but weight on his left wrist. NO charge.
--- NOTE | 2022-03-21 12:33 | OT.IP.TRT ---
Spoke at length with pt and his regarding OT needs and equipment of BSC, WC, rubber cutter and shape carver, FWW and platform for DAHLIAE,- able to give pt's equipment list for DME. Pt's lunch just came. To work with pt tomorrow regarding showering needs. NO charge.
--- NOTE | 2022-03-21 13:55 | PT.IPTN ---
Physical Therapy Treatment Note M2 PT-IP Current Condition Start: 03/21/22 12:43 Freq: NEEDED Status: Active Protocol: Document 03/21/22 10:59 AB (Rec: 03/21/22 13:04 AB [id number]) Physical Therapy Current Condition Current Condition Evaluation Date 03/21/22 Treatment Diagnosis L pelvic fx; L wrist fx; difficulty n walking Onset Date 03/21/22 M3 PT-IP Subjective Start: 03/21/22 12:43 Freq: NEEDED Status: Active Protocol: Document 03/21/22 13:32 KS (Rec: 03/21/22 14:58 KS [id number]) Subjective Physical Therapy Visit Type Type Treatment Note Visit Start Time 13:32 Visit Stop Time 13:55 Total Visit Minutes 23 Number of SITE DAMAGE PREVENTION TECHNICIAN Visits 1 Physical Therapy Visit Comments Patient Comments agreeable to do PT. present for caregiver training . M4 PT-IP Mobility and Gait Start: 03/21/22 12:43 Freq: NEEDED Status: Active Protocol: Document 03/21/22 13:32 KS (Rec: 03/21/22 14:58 KS [id number]) PT-Bed Mobility Assessment Supine to Sit Supine to Sit Standby Assistance,1 Person Assistance,Head of Bed Elevated,Bedrails Sit to Supine Sit to Supine Moderate Assistance,1 Person Assistance,Head of Bed Elevated,Bedrails Scooting Scooting to Edge of Bed Standby Assistance Scooting Up and Down in Bed Standby Assistance PT-Transfer Assessment Sit to and From Stand Sit to and from Stand Minimal Assistance,1 Person Assistance,Use of Upper Extremities Equipment Transfer Assistive Device Gait Belt,Platform Walker Orthotic/Prosthetic Devices or Brace: Yes Transfers Transfer Destination Bed Transfer Technique Pt ambulated w/ FWW Transfer Ability Level of Assist Minimal Assistance,Moderate Assistance,1 Person Assistance ,Use of Upper Extremities Comments Mobility Comments Pt in bed upon arrival w/ in room. Agreeable to mobilize w/ PT. Pt able to sup <>sit SBA w/ bed rails and HOB elevated but needed increased times and cues to avoid WB on LUE. Pt scooted EOB SBA. Demonstrated gaitbelt application and FWW guarding to pts , pt sit<>Stand w/ PFW Min A and cues. Pt able to maintain 50# WB when standing and then ambulated ~12 ft w/ PFW. Pt needed to return to bed d/t fatigue, primarily was NWB to TTWB while ambulating. Mod A for LE guidance into bed by pts , pt able to reposition himself in bed using RLE to bridge and scoot. Pt only able to lift LLE very minimally at this time. Discussed at home safety, pts acquiring PFW, BSC, w/c and lift to get pt inside house. They are having ramp installed for w/c access. Gait Assessment Gait Gait Assistance Required: Minimum Assistance,1 Person Assist Distance (Feet) 12 Able to Maintain Weight Bearing Status Yes During Gait Assistive Devices Assistive Device Gait Belt,Platform Walker Orthotic/Prosthetic Devices or Brace: Yes Gait Deviations General Gait Pattern Decreased Stride Length, Decreased Feet Clearance Factors Limiting Gait Function Factors Limiting Gait Function Decreased Activity Tolerance, Decreased Strength,Limited Range of Motion,Pain,Poor Balance Comments Gait Comments Please refer to mobility section for details. Stair Climbing Assessment Comments Stair Climbing Comments Not assessed - pt will be lifted up stairs using w/c lift? PT-Balance Assessment Sitting Balance and Reactions Static Sitting Balance Ability Good Dynamic Sitting Balance Ability Good Standing Balance and Reactions Static Standing Balance Ability Fair Dynamic Standing Balance Ability Fair Device Used PFW M5 PT-IP Objective Assessments Start: 03/21/22 12:43 Freq: NEEDED Status: Active Protocol: Document 03/21/22 10:59 AB (Rec: 03/21/22 13:04 AB [id number]) Orientation Orientation/Cognition Level of Alertness Alert Orientation Name,Place,Situation Language Function Ability No Deficits Noted Safety Awareness Decreased Safety Awareness Memory Description No Deficits Noted Gross Range of Motion Lower Extremity ROM Assessment Within Functional Limits Strength Lower Extremity Strength Assessment Left Impaired Hip 3+/5 Knee 4-/5 Muscle Tone Muscle Tone WNL Yes M6 PT-IP Treatment Start: 03/21/22 12:43 Freq: NEEDED Status: Active Protocol: Document 03/21/22 13:32 KS (Rec: 03/21/22 14:58 KS [id number]) Physical Therapy Treatment Exercises Exercises Straight Leg Raises Education Education Provided Precautions,Weight Bearing Status,Safety Other Treatments Other Treatment Performed SL bridges M7 PT-IP Assessment and Plan Start: 03/21/22 12:43 Freq: NEEDED Status: Active Protocol: Document 03/21/22 13:32 KS (Rec: 03/21/22 14:58 KS [id number]) PT Summary Assessment and Plan Potential Rehabilitation Potential Fair Summary Impairments Pain,ROM,Strength,Balance, Coordination,Sensation,Tone, Cognition,Bed Mobility, Transfers,Gait,Activity Tolerance Assessment Summary Pt w/ improved mobility this PM but still very limited by weakness and low tolerance for activity. Able to ambulate 12 ft w/ PFW Min A. Completed caregiver training w/ pt who was able to apply gait belt ad assist pt w/ transfers . Pt reluctant to accept assistance and needs cues to maintain NWB on LUE but maintains 50# PWB on LLE throughout. is acquiring all necessary DME and has lift to get pt inside of house and w/c ramp is being installed. Pt will benefit from HHPT to improve strength, activity tolerance, and functional mobility independence. Goals Bed Mobility Goal Independent Transfer Goal Independent,Front Wheeled Walker Gait Goal Independent,Front Wheel Walker Gait Distance 50 Other Goals ambulation goals using PFW Days to Meet Goals 5 Frequency of Treatment Frequency Of Treatment Twice a Day Treatment Plan Physical Therapy Treatment Plan Bed Mobility Training,Transfer Training,Gait Training, Therapeutic Exercise,Balance Retraining,Post Op Education, Discharge Planning,Hot or Cold Pack,Neuromuscular Re-ed, Coordination Retraining,Manual Therapy Weight Bearing Status Weight Bearing Status Non-Weight Bearing Allowed Weight Bearing Amount (enter % LUE: NWB or #) (%) LLE: 50# PWB: opted NWB as pt unable to safely do PWB: pt able to maintain NWB. Recommendations To Nursing Amount of Assist Needed 1 Person Assist Discharge Recommendations PT Discharge Recommendations Home with 05/03 Assist Available,Home Health Equipment Needed for Home Before PFW Discharge
[2022-03-21] MEDS: OXYCODONE IR 5 MG TABLET 10 MG PO ×2 (16:11→22:58)
--- NOTE | 2022-03-21 18:15 | P.HP_ITS ---
History of Present Illness History of Present Illness Date Patient Seen: 03/21/22 Time Patient Seen: 11:30 Chief complaint: FALL LEFT HIP INJURY Narrative: This is a 56-year-old gentleman who fell at home and noted the acute onset of left hip pain and some left arm pain. He notes ongoing substantial left hip and pelvic pain. Was evaluated in the emergency room and admitted as he was unable to mobilize. He notes he is comfortable resting in bed but really is having difficulty with mobility even basic bed mobility. His left wrist is comfortable in a splint. He notes he was not lightheaded did not have any chest pain or other symptoms prior to his fall. Patient History Medical History History of cardioversion Hypertrophic cardiomyopathy Surgical History History of cardiac radiofrequency ablation Family & Social History Social History: household members spouse Prior Living Arrangements RV Safety & Behavioral: Feels Safe in Current Yes Environment Tobacco & Substance use: Smoking Status Never smoker alcohol intake former Substance Use Type does not use Meds Home Medications and Allergies Home Medications Medication Instructions Recorded Confirmed Type walker #1 ea 03/21/22 Rx walker #1 ea 03/21/22 Rx Allergies Allergy/AdvReac Type Severity Reaction Status Date / Time No Known Drug Allergies Allergy Verified 03/20/22 22:06 Review of Systems Review of Systems Narrative: Denies recent fever chills or other problems. He Said it was an isolated fall. Has a history of cardiomyopathy but denies recent worsening chest pain shortness of breath or dizziness. He is retired from company tanker truck driver. Exam Vital Signs (past 8 hours): - 03/21/22 12:00 03/21/22 16:00 03/21/22 15:00 Temperature 96.7 F L 97.6 F Pulse Rate 65 58 L Respiratory Rate 18 16 Blood Pressure 135/84 127/74 Pulse Oximetry 94 97 97 Oxygen Delivery Method Room Air Oxygen Flow Rate 0 0 0 Oxygen Delivery Method Room Air Oxygen Flow Rate 0 Narrative Exam Narrative: Is resting comfortably in bed HEENT is benign his neck is supple cor regular rate and rhythm abdomen is soft benign, lungs are clear, back shows some focal tenderness on the left over the sacrum quite difficult for him to logroll, he has really minimal pain with gentle internal and external rotation of his left hip, he has got a contusion over his left greater trochanter and some moderate tenderness over the anterior aspect of his pelvis on the left and over his left symphysis pubis. Sterile logically intact distally can fire his toe flexors and extensors. Left upper extremity has a splint in place but he has only mild tenderness to palpation over the dorsum of his left wrist and left carpal row, there is mild swelling he can fire his finger flexors and extensors is neurologically intact distally Objective Labs Result Diagrams: 03/21/22 03:50 03/21/22 03:50 Labs: Laboratory Results - last 24 hr 03/21/22 03/21/22 03/21/22 03:50 03:50 03:50 WBC 9.1 RBC 4.88 Hgb 14.9 Hct 42.8 MCV 87.5 MCH 30.5 MCHC 34.9 RDW 13.2 Plt Count 162 Neut % (Auto) 74.5 Lymph % (Auto) 15.7 L [place] % (Auto) 8.3 Eos % (Auto) 1.2 L Baso % (Auto) 0.3 Neut # (Auto) 6800 Lymph # (Auto) 1400 [place] # (Auto) 800 Eos # (Auto) 100 Baso # (Auto) 0 Sodium 136 L Potassium 3.7 Chloride 104 Carbon Dioxide 24 BUN 19 Creatinine 0.71 Estimated GFR > 60 BUN/Creatinine Ratio 26.8 H Glucose 110 H Calcium 7.7 L Total Bilirubin 0.8 AST 32 ALT 26 Alkaline Phosphatase 50 Total Protein 6.4 Albumin 3.9 Globulin 2.5 Albumin/Globulin Ratio 1.6 SARS-CoV-2 (PCR) Negative X-rays including an AP pelvis and a CT scan of his pelvis shows a left sacral fracture and a left anterior rim acetabular fracture with extension into the pubic rami there is minimal displacement and no evidence of superior shift of the hemipelvis X-rays of the left wrist show a triquetral fracture with a small bony avulsion there is no obvious scaphoid injury or scapholunate disruption Assessment & Plan Assessment and plan (1) Closed pelvic fracture: Status: Acute (2) Fracture of left wrist: Status: Acute (3) Sacral fracture, closed: Status: Acute (4) Hypertrophic cardiomyopathy: Status: Acute (5) Closed left acetabular fracture: Status: Acute (6) Closed fracture of left superior pubic ramus: Status: Acute Plan recommended conservative management. He can be weight-bearing as tolerated on his left upper extremity with a platform walker. He can be weight- bearing to 100 lb on the left lower extremity. I think it okay to go ahead and mobilize him with physical therapy. He is having substantial pain at this point and is having difficulty with mobility. I anticipate he will require inpatient care and therapy for at least 2 days in order to work on his mobility. He also has cardiomyopathy. We will work on getting him set up for a course of physical therapy. The foot will follow up in my office in 1-2 weeks with repeat x-rays of his left wrist out of the splint and an AP pelvis and an inlet and outlet view. Time Spent With Patient Critical Care time: I spent a total of [] minutes of critical care time on this patient's care today; this time is exclusive of procedural time. Quality VTE Deep Vein Thrombosis/Pulmonary Embolism Present on Admission: No
[2022-03-21] MEDS: SENNOSIDES 8.6 MG TABLET 17.2 MG PO (21:10)
[2022-03-22 03:00] VITALS: O2SAT 97
[2022-03-22] MEDS: OXYCODONE IR 5 MG TABLET 10 MG PO ×3 (03:13→12:17)
[2022-03-22 03:54] VITALS: BP 117/69; PULSE 55; RESP 16; TEMP 36.6; O2SAT 96
[2022-03-22 05:25] LABS: Add Manual Diff / Slide Review NO; Basophils Absolute Auto 0 /uL (0-100); Basophils Percent Auto 0.3 % (0-2); Eosinophils Absolute Auto 100 /uL (0-450); Eosinophils Percent Auto 1.8 % (2-4); Hematocrit 43.1 % (41-53); Hemoglobin 15.3 g/dL (13.5-17.5); Lymphocytes Absolute Auto 1400 /uL (1100-4500); Lymphocytes Percent Auto 18.3 % (25-40); Mean Corpuscular HGB Conc 35.4 % (30-36); Mean Corpuscular Hemoglobin 30.9 PG (26-34); Mean Corpuscular Volume 87.2 fL (80-100); Monocytes Absolute Auto 800 /uL (0-900); Monocytes Percent Auto 10.7 % (3-14); Neutrophils Absolute Auto 5300 /uL (1500-7000); Neutrophils Percent Auto 68.9 % (50-75); Platelet Count 138 X10^3/uL (150-400); Red Blood Cell Count 4.95 X10^6/uL (4.5-5.9); Red Cell Distribution Width 13.1 % (11.6-14.8); White Blood Cell Count 7.7 X10^3/uL (4.5-11.0)
[2022-03-22 05:29] LABS: HEMOLYSIS < 15 (0-50); Potassium 4.2 mmol/L (3.4-5.1)
[2022-03-22 05:30] LABS: BUN Creatinine Ratio 23.3 (6-22); Blood Urea Nitrogen 17 mg/dL (9-20); Calcium 8.3 mg/dL (8.4-10.2); Carbon Dioxide 28 mmol/L (22-32); Chloride 106 mmol/L (98-107); Estimated Glomerular Filt Rate > 60 mL/min (>60); Glucose 113 mg/dL (70-100); Sodium 137 mmol/L (137-145)
[2022-03-22] MEDS: ACETAMINOPHEN 325 MG TABLET 650 MG PO ×2 (05:52→12:17)
[2022-03-22 07:51] VITALS: BP 133/88; PULSE 56; RESP 17; TEMP 36.6; O2SAT 95
--- NOTE | 2022-03-22 08:07 | P.PN_ITS ---
Subjective Subjective Date Patient Seen: 03/22/22 Time Patient Seen: 08:07 Interval history: Patient states his pain is mild. Denies fever or chills. No nausea or vomiting. Exam Vital Signs (past 8 hours): - 03/22/22 03:00 03/22/22 03:54 03/22/22 07:51 Temperature 97.9 F 97.8 F Pulse Rate 55 L 56 L Respiratory Rate 16 17 Blood Pressure 117/69 133/88 Pulse Oximetry 97 96 95 Oxygen Delivery Method Room Air Oxygen Flow Rate 0 0 Oxygen Delivery Method Room Air Oxygen Flow Rate 0 Narrative Exam Narrative: 56-year-old male resting comfortably in bed in no apparent distress. Motor functions intact bilateral lower extremities. Left wrist is in a splint. Motor functions intact distal left upper extremity. Const General: cooperative and comfortable Orientation: alert HENMT Head: normocephalic Resp Effort & Inspection: normal respiratory effort and able to speak in complete sentences Neuro General: patient alert and patient awake Objective Imaging CT scan - pelvis: Radiologist's impression: 1. Left pelvic ring fractures involving the left sacrum as well as the left superior and inferior pubic rami. Left wrist x-ray: Radiologist's impression: ?Small dorsal fracture fragment compatible with a triquetral fracture. Labs Result Diagrams: 03/22/22 04:49 03/22/22 04:49 Labs: Laboratory Results - last 24 hr 03/22/22 03/22/22 04:49 04:49 WBC 7.7 RBC 4.95 Hgb 15.3 Hct 43.1 MCV 87.2 MCH 30.9 MCHC 35.4 RDW 13.1 Plt Count 138 L Neut % (Auto) 68.9 Lymph % (Auto) 18.3 L [place] % (Auto) 10.7 Eos % (Auto) 1.8 L Baso % (Auto) 0.3 Neut # (Auto) 5300 Lymph # (Auto) 1400 [place] # (Auto) 800 Eos # (Auto) 100 Baso # (Auto) 0 Sodium 137 Potassium 4.2 Chloride 106 Carbon Dioxide 28 BUN 17 Creatinine 0.73 Estimated GFR > 60 BUN/Creatinine Ratio 23.3 H Glucose 113 H Calcium 8.3 L PFSH Medical History History of cardioversion Hypertrophic cardiomyopathy Surgical History History of cardiac radiofrequency ablation Social History household members: spouse Smoking Status: Never smoker alcohol intake: former Assessment & Plan Assessment & Plan narrative: Conservative management PT? Weight-bearing as tolerated on his left upper extremity with a platform walker.? He can be weight-bearing to 100 lb on the left lower extremity.? Follow up [facility] in 1-2 weeks with repeat x-rays of his left wrist out of the sp lint and an AP pelvis and an inlet and outlet view. Disposition when medically stable per hospitalist. Time Spent With Patient Time with patient: less than 30 minutes Critical Care time: I spent a total of [] minutes of critical care time on this patient's care today; this time is exclusive of procedural time. Quality VTE Deep Vein Thrombosis/Pulmonary Embolism Present on Admission: No
[2022-03-22 08:20] VITALS: O2SAT 95
[2022-03-22] MEDS: DOCUSATE 100 MG CAPSULE PO (08:20)
[2022-03-22] MEDS: SODIUM CHLORIDE 0.9% FLUSH 10 ML IV (08:21)
--- NOTE | 2022-03-22 09:03 | OT.IP.EVAL ---
Current Diagnoses Other hypertrophic cardiomyopathy (03/21/22) Unspecified fracture of sacrum, initial encounter for closed fracture (03/21/22) Unspecified fracture of left acetabulum, initial encounter for closed fracture (03/21/22) Fracture of superior rim of left pubis, initial encounter for closed fracture (03/21/22) Fracture of unspecified parts of lumbosacral spine and pelvis, initial encounter for closed fracture (03/21/22) Fracture of unspecified carpal bone, left wrist, initial encounter for closed fracture (03/21/22) Past Medical History (Last Reviewed 03/22/22 @ 08:10 by Carlos Gilmore PA-C) History of cardioversion Hypertrophic cardiomyopathy Surgical History (Last Reviewed 03/22/22 @ 08:10 by Carlos Gilmore PA-C) History of cardiac radiofrequency ablation Occupational Therapy Inpatient Evaluation/Re-Eval M1 PT/OT-IP Prior Functional Status Start: 03/21/22 12:43 Freq: NEEDED Status: Active Protocol: Document 03/22/22 09:03 [facility] (Rec: 03/22/22 10:52 [facility] [id number]) Medical Review Prior Functional Status Medical History Reviewed Yes Communication able to make needs known Mobility and Gait independent Activities of Daily Living and IADL's Independent Social History Household Members spouse Living Arrangements RV Number of Floors (Floors) Two Floors Number of Stairs To Enter/Railing? 3 steps to enter without rails but has L side door grab bar (spouse stated that at the moment, somebody is looking into it to put a ramp on) 3 steps with R rail to get to the toilet/shower (spouse has a bedside commode for pt to use and does not have to to up to the toilet level) Home Environment Standard Height Toilet,Walk in Shower,Built-In Shower Seat Home Equipment Hand Held Shower,Grab Bars In Shower Additional Social History Comment pt plans to sleep on his recliner spouse stated that they are trying to put a ramp in right now but the other option is have a lift machine lift pt up to the house while sitting on a w/c. M2 OT-IP Current Condition Start: 03/21/22 12:32 Freq: Status: Active Protocol: Document 03/22/22 09:03 [facility] (Rec: 03/22/22 10:52 [facility] [id number]) Occupational Therapy Current Condition Current Condition Evaluation Date 03/22/22 Treatment Diagnosis Left pelvic ring fx, left wrist small dorsal compartment with a triquestral Diagnosis Onset Date 03/21/22 Weight Bearing Status Allowed Weight Bearing Amount (enter % NWB for Left wrist, 100lb or #) (%) weight bearing for LLE, initially pt states doctor states was 50lbs yesterday and now changed to 100lbs. M3 OT- IP Subjective and Pain Start: 03/21/22 12:32 Freq: Status: Active Protocol: Document 03/22/22 09:03 [facility] (Rec: 03/22/22 10:52 [facility] [id number]) OT- Subjective Occupational Therapy Visit Type Type Initial Evaluation Visit Start Time 09:03 Visit Stop Time 09:52 Total Visit Minutes 49 Occupational Therapy Visit Comments Patient Comments Pt agreed to shower. Patient/Caregiver Goals TO go home. OT Pain Assessment Pain When Pain Assessed At Rest Pain Present Pain Present Pain Reported Location Bilateral Hip Intensity 1 Scale Used Numeric (0 - 10) M4 OT- IP ADL's Start: 03/21/22 12:32 Freq: Status: Active Protocol: Document 03/22/22 09:03 [facility] (Rec: 03/22/22 10:52 [facility] [id number]) OT [id number] Comments OT Self-Feeding Comments Independent after set-up. OT ADL-Grooming Comments OT Grooming Comments Pt refused OT ADL-Oral Care Comments Oral Care Comments Pt refused OT ADL-Dressing General Eval Upper Body Dressing Ability Minimal Assistance Lower Body Dressing Ability Moderate Assistance,Maximum Assistance Comments OT Dressing Comments MARTHA to help pull down t-shirt in the back, MODA to help pull up brief and pants over his hips. Pt able to doff socks with the senior buyer and assist to canelo socks. OT ADL-Toileting General Evaluation Toileting Ability Minimal Assistance Comments OT Toileting Comments assist to pull up brief over his hips OT ADL-Bathing Bathing Type Bathing Type Shower General Evaluation Bathing Ability Moderate Assistance Areas Needing Assistance Wash/Dry Back,Wash/Dry Perineal Area,Wash/Dry Lower Extremities Devices Bathing Equipment Shower Chair with Arms Comments OT Bathing Comments Suggested pt to get a shower chair and long handle sponge. Pt states to shower at his friend's house who has a walk in shower if needed. M5 OT- IP IADL's Start: 03/21/22 12:32 Freq: Status: Active Protocol: Document 03/22/22 09:03 [facility] (Rec: 03/22/22 10:52 [facility] [id number]) OT-Instrumental Activities of Daily Living Home Safety Awareness Awareness of Need for Assistance at Home Good Awareness Ability to Problem Solve Emergency Able to Problem Solve Situations Home Safety Comments Pt's is a nurse practitioner and will be able to assist pt with his needs and also has other family members to assist as needed. M6 OT- IP Functional Cognition Start: 03/21/22 12:32 Freq: Status: Active Protocol: Document 03/22/22 09:03 [facility] (Rec: 03/22/22 10:52 [facility] [id number]) Cognitive Factors Limiting Selfcare Function Cognitive Ability Level of Alertness Alert Patient Orientation Name,Age,Birthday,Month,Date, Year,Day of Week,Place, Situation Attention Span Ability Capable of Focused Attention, Capable of Sustained Attention Ability to Follow Commands Able to Follow Multi-Step Commands Memory Description No Deficits Noted Safety Awareness No Deficits Noted Problem Solving Ability No deficits Noted Executive Function Ability No Deficits Noted Cognitive Comments Cognitive Assessment Comments Pt intact with no cognitive issues on OT eval. Occasional reminder to not put weight on hie left hand OT- Vision and Hearing OT- Hearing Assessment OT- Hearing Assessment WFL OT- Vision Assessment Visual Attentiveness WFL Occular Pursuits WFL M7 OT- IP Mobility and Balance Start: 03/21/22 12:32 Freq: Status: Active Protocol: Document 03/22/22 09:03 [facility] (Rec: 03/22/22 10:52 [facility] [id number]) OT- Bed Mobility Assessment Supine to Sit Supine to Sit Assist Standby Assistance Sit to Supine Sit to Supine Assist Minimal Assistance OT-Transfer Assessment Sit to and From Stand Sit to and from Stand Minimal Assistance Transfers Transfer Ability Minimal Assistance Technique Transfer Destination Bed,Shower Stall,Toilet Transfer Technique Stand Step Pivot Devices Transfer Assistive Devices Gait Belt,Platform Walker Comments Mobility Comments MARTHA to stand to the platform walker and able to walk into the bathroom and needing assist to help lower down to the toilet. OT- Balance Assessment Sitting Balance and Reactions Static Sitting Balance Ability Normal Dynamic Sitting Balance Ability Good Standing Balance and Reactions Static Standing Balance Ability Fair Dynamic Standing Balance Ability Poor M8 OT- IP Objective Assessments Start: 03/21/22 12:32 Freq: Status: Active Protocol: Document 03/22/22 09:03 [facility] (Rec: 03/22/22 10:52 [facility] [id number]) OT Gross Range of Motion Upper Extremity Range of Motion Assessment Left Impaired OT Strength Upper Extremity Strength Assessment Left Impaired M9 OT- IP Assessment and Plan Start: 03/21/22 12:32 Freq: Status: Active Protocol: Document 03/22/22 09:03 [facility] (Rec: 03/22/22 10:52 [facility] [id number]) OT Summary Assessment and Plan Potential Rehabilitation Potential Good Analytic Complexity at Evaluation Moderate Summary OT Impairments Pain,Functional Mobility, Dressing,Toileting,Bathing, Toilet Transfers,Shower Transfers Progress Towards Goals Progressing Toward Goals Assessment Summary Pt with multiple fractures and main barriers are step, now needing assist with ADL's, and mobility needs. Pt able to do a shower today and his has been able to shrimp picker equipment needs of BSC, wc, fww with LUE platform and looking to go home today. Goals Self-Feeding Goal Independent Grooming Goal Independent Dressing Goal Minimal Assistance Toileting Goal Minimal Assistance Bathing Goal Moderate Assistance Toilet Transfer Goal Standby Assistance Shower Transfer Goal Minimal Assistance Frequency of Treatment Frequency Of Treatment Once a Day Treatment Plan OT Treatment Plan ADL Training,Functional Mobility,Patient/Family Education,Discharge Planning Discharge Recommendations OT Discharge Recommendations Home with 24/ Assist Available Transportation Needs at Discharge Private Vehicle
--- NOTE | 2022-03-22 10:32 | PM.DS.1 ---
History of Present Illness History of Present Illness Date Patient Seen: 03/22/22 Chief complaint: FALL LEFT HIP INJURY Narrative: SHAUNA Coughlin: This is a 56-year-old gentleman who fell at home and noted the acute onset of left hip pain and some left arm pain. He notes ongoing substantial left hip and pelvic pain. Was evaluated in the emergency room and admitted as he was unable to mobilize. He notes he is comfortable resting in bed but really is having difficulty with mobility even basic bed mobility. His left wrist is comfortable in a splint. He notes he was not lightheaded did not have any chest pain or other symptoms prior to his fall. Discharge Providers Provider Date of admission: 03/21/22 03:13 Discharge Date: 03/22/22 Consults: 03/21/22 03:11 Consult to Physician Routine Comment: Consulting Provider: Susu Hope Reason for consultation: left wrist fracture Has provider been notified: Yes 03/21/22 03:12 Consult to Physical Therapy Evaluate & Treat Comment: pelvic fracture, left wrist fracture Physician Instructions: Evaluate and Treat 03/21/22 11:12 Consult to Occupational Therapy Evaluate & Treat Comment: Physician Instructions: Evaluate and treat 03/21/22 18:35 Consult to Physical Therapy Evaluate & Treat Comment: right LE 100 lbs max, right UE WBAT, platform walk Physician Instructions: Evaluate and Treat Discharge provider: Gregg Vernon DO Summary Hospital Course Discharge Diagnosis: Left wrist fracture, acute and present on admission Pelvic ring fracture, acute and present on admission History of hypertrophic cardiomyopathy Hospital Course: This is a 56 year old male admitted with pelvic ring fracture and a left wrist fracture. He was admitted with difficulties controlling pain in the setting of his fractures. Management was non-operative, and orthopedic consultation was obtained. Recommend further outpatient follow up with orthopedics per their recommendations. Patient had no acute events, and pain was improved on opiate therapy eventually. He was doing well with physical and occupational therapies, and was stable for discharge home. Exam Vital Signs (past 8 hours): - 03/22/22 03:00 03/22/22 03:54 03/22/22 07:51 Temperature 97.9 F 97.8 F Pulse Rate 55 L 56 L Respiratory Rate 16 17 Blood Pressure 117/69 133/88 Pulse Oximetry 97 96 95 Oxygen Delivery Method Room Air Oxygen Flow Rate 0 0 Oxygen Delivery Method Room Air Oxygen Flow Rate 0 Narrative Exam Narrative: Gen: Alert, oriented, well-developed 56 y.o. male, NAD HEENT: normocephalic, atraumatic, conjunctiva clear, sclera non-icteric, front gums are edentulous, oral mucosa pink and moist Neck: supple, full ROM, no JVD, trachea is midline Resp: Lungs CTA, non-labored breathing CV: RRR, no murmur or rubs Abd: soft, non-tender, normoactive BTs Skin: no lesions or rashes, dry and intact Neuro: Alert and oriented X 4 w/no focal deficits. Speech clear and coherent. Extremities: no edema or effusion. splinted wrist and Psyche: normal mood and affect. Objective Labs Result Diagrams: 03/22/22 04:49 03/22/22 04:49 Labs: Laboratory Results - last 24 hr 03/22/22 03/22/22 04:49 04:49 WBC 7.7 RBC 4.95 Hgb 15.3 Hct 43.1 MCV 87.2 MCH 30.9 MCHC 35.4 RDW 13.1 Plt Count 138 L Neut % (Auto) 68.9 Lymph % (Auto) 18.3 L [place] % (Auto) 10.7 Eos % (Auto) 1.8 L Baso % (Auto) 0.3 Neut # (Auto) 5300 Lymph # (Auto) 1400 [place] # (Auto) 800 Eos # (Auto) 100 Baso # (Auto) 0 Sodium 137 Potassium 4.2 Chloride 106 Carbon Dioxide 28 BUN 17 Creatinine 0.73 Estimated GFR > 60 BUN/Creatinine Ratio 23.3 H Glucose 113 H Calcium 8.3 L PFSH Medical History History of cardioversion Hypertrophic cardiomyopathy Surgical History History of cardiac radiofrequency ablation Social History household members: spouse Smoking Status: Never smoker alcohol intake: former Discharge Plan Discharge Plan Patient Disposition: Home Provider Discharge Comment: You were admitted to the hospital with a pelvis and wrist fracture. Please follow up with your orthopedic surgeon in the clinic. Pain medication prescribed. You can use tylenol or motrin / aleve at home. Discharge orders & Medications Prescriptions: New (DME) walker Misc See Rx Instructions .Route Qty: 1 0RF Rx Instructions: One 4 wheeled walker (DME) walker Misc See Rx Instructions .Route Qty: 1 0RF Rx Instructions: One walker with platform attachment oxycodone 5 mg Tablet 5 - 10 mg PO Q4HR PRN (Reason: Pain, Moderate (4-6)) 7 Days Qty: 50 0RF Diet/Activity/Treatments Diet: Diet as Tolerated Activity: weight restrictions per orthopedic surgery. 100lb weight restriction on left leg. Visit Report/Discharge Packet Instructions: DI for Pelvic Fracture, DI for Prescription Opioid Use Discharge Data Attending Provider: Betty Nielsen VTE Deep Vein Thrombosis/Pulmonary Embolism Present on Admission: No
--- NOTE | 2022-03-22 11:03 | PT.IPTN ---
Current Diagnoses Other hypertrophic cardiomyopathy (03/21/22) Unspecified fracture of sacrum, initial encounter for closed fracture (03/21/22) Unspecified fracture of left acetabulum, initial encounter for closed fracture (03/21/22) Fracture of superior rim of left pubis, initial encounter for closed fracture (03/21/22) Fracture of unspecified parts of lumbosacral spine and pelvis, initial encounter for closed fracture (03/21/22) Fracture of unspecified carpal bone, left wrist, initial encounter for closed fracture (03/21/22) Physical Therapy Treatment Note M2 PT-IP Current Condition Start: 03/21/22 12:43 Freq: NEEDED Status: Active Protocol: Document 03/21/22 10:59 [facility] (Rec: 03/21/22 13:04 [facility] [id number]) Physical Therapy Current Condition Current Condition Evaluation Date 03/21/22 Treatment Diagnosis L pelvic fx; L wrist fx; difficulty n walking Onset Date 03/21/22 M3 PT-IP Subjective Start: 03/21/22 12:43 Freq: NEEDED Status: Active Protocol: Document 03/22/22 10:45 [facility] (Rec: 03/22/22 12:20 [facility] [id number]) Subjective Physical Therapy Visit Type Type Treatment Note Visit Start Time 10:45 Visit Stop Time 11:03 Total Visit Minutes 18 Number of CONSULTING TECHNICAL MANAGER Visits 2 Physical Therapy Visit Comments Patient Comments agreeable to do PT. M4 PT-IP Mobility and Gait Start: 03/21/22 12:43 Freq: NEEDED Status: Active Protocol: Document 03/22/22 10:45 [facility] (Rec: 03/22/22 12:20 [facility] [id number]) PT-Bed Mobility Assessment Supine to Sit Supine to Sit Standby Assistance,1 Person Assistance,Head of Bed Elevated Sit to Supine Sit to Supine Standby Assistance,1 Person Assistance,Head of Bed Elevated Scooting Scooting to Edge of Bed Standby Assistance Scooting Up and Down in Bed Standby Assistance PT-Transfer Assessment Sit to and From Stand Sit to and from Stand Contact Guard Assistance,1 Person Assistance,Use of Upper Extremities Equipment Transfer Assistive Device Gait Belt,Platform Walker Orthotic/Prosthetic Devices or Brace: Yes Transfers Transfer Destination Bed Transfer Technique Pt ambulated w/ PFW Transfer Ability Level of Assist Contact Guard Assistance,1 Person Assistance,Use of Upper Extremities Comments Mobility Comments Pt in bed upon arrival and agreeable to practice ambulating. Aware of 100# WB status of LLE. Pt had improved bed mobility and less pain overall today. SBA for sup<> sit and scooting EOB. CGA for sit<>Stand w/ PFW. Pt then ambulated ~30 ft around room and returned tobed d/t fatigue of RLE. Pt able to use gaitbelt to self assist LLE back into bed SBA. Pt left in bed w/ all needs in reach. Gait Assessment Gait Gait Assistance Required: Standby Assistance,Contact Guard Assist,1 Person Assist Distance (Feet) 30 Able to Maintain Weight Bearing Status Yes During Gait Assistive Devices Assistive Device Gait Belt,Platform Walker Orthotic/Prosthetic Devices or Brace: Yes Gait Deviations General Gait Pattern Decreased Stride Length, Decreased Feet Clearance Factors Limiting Gait Function Factors Limiting Gait Function Decreased Activity Tolerance, Decreased Strength,Limited Range of Motion,Pain,Poor Balance Comments Gait Comments Please refer to mobility section for details. Stair Climbing Assessment Comments Stair Climbing Comments Not assessed - pt will be lifted up stairs using w/c lift PT-Balance Assessment Sitting Balance and Reactions Static Sitting Balance Ability Good Dynamic Sitting Balance Ability Good Standing Balance and Reactions Static Standing Balance Ability Fair Dynamic Standing Balance Ability Fair Device Used PFW M5 PT-IP Objective Assessments Start: 03/21/22 12:43 Freq: NEEDED Status: Active Protocol: Document 03/21/22 10:59 [facility] (Rec: 03/21/22 13:04 [facility] [id number]) Orientation Orientation/Cognition Level of Alertness Alert Orientation Name,Place,Situation Language Function Ability No Deficits Noted Safety Awareness Decreased Safety Awareness Memory Description No Deficits Noted Gross Range of Motion Lower Extremity ROM Assessment Within Functional Limits Strength Lower Extremity Strength Assessment Left Impaired Hip 3+/5 Knee 4-/5 Muscle Tone Muscle Tone WNL Yes M6 PT-IP Treatment Start: 03/21/22 12:43 Freq: NEEDED Status: Active Protocol: Document 03/22/22 10:45 [facility] (Rec: 03/22/22 12:20 [facility] [id number]) Physical Therapy Treatment Exercises Exercises Straight Leg Raises Education Education Provided Precautions,Weight Bearing Status,Safety M7 PT-IP Assessment and Plan Start: 03/21/22 12:43 Freq: NEEDED Status: Active Protocol: Document 03/22/22 10:45 [facility] (Rec: 03/22/22 12:20 [facility] [id number]) PT Summary Assessment and Plan Potential Rehabilitation Potential Good Summary Impairments Pain,ROM,Strength,Balance, Coordination,Sensation,Tone, Cognition,Bed Mobility, Transfers,Gait,Activity Tolerance Progress Towards Goals Slow Progress due to Activity Tolerance Assessment Summary Pt continuing to show progress with mobility, but remains limited by low activity tolerance and pain. SBA to CGA throughout treatment and able to ambulate 30 ft w/ PFW. Pt has all DME necessary at home and will benefit from HHPT to improve strength and functional mobility. Goals Bed Mobility Goal Independent Transfer Goal Independent,Front Wheeled Walker Gait Goal Independent,Front Wheel Walker Gait Distance 50 Other Goals ambulation goals using PFW Days to Meet Goals 5 Frequency of Treatment Frequency Of Treatment Twice a Day Treatment Plan Physical Therapy Treatment Plan Bed Mobility Training,Transfer Training,Gait Training, Therapeutic Exercise,Balance Retraining,Post Op Education, Discharge Planning,Hot or Cold Pack,Neuromuscular Re-ed, Coordination Retraining,Manual Therapy Weight Bearing Status Weight Bearing Status Non-Weight Bearing Allowed Weight Bearing Amount (enter % LUE: NWB or #) (%) LLE: 100# PWB Recommendations To Nursing Amount of Assist Needed 1 Person Assist Discharge Recommendations PT Discharge Recommendations Home with 05/03 Assist Available,Home Health Equipment Needed for Home Before PFW Discharge Transportation Needs at Discharge Private Vehicle
--- NOTE | 2022-03-22 11:07 | CM.DPC ---
Addendum entered by YARELY Christianson 03/22/22 11:14: ADD: JOSÉ MIGUEL confirmed with [facility] that pt is now established with SHAUNA Lee and put info on F2F and updated [facility]. BF Original Note: DCP Discharge Home with HH Per MD, pt is medically stable to d/c home today with spouse and agreeable with HH and no identified barriers to discharge. JOSÉ MIGUEL called [facility] regarding the referral faxed yesterday as [facility] is a week out for start of care and [facility] has availability this week. JOSÉ MIGUEL met bedside with pt as he was finishing PT and per PRN PHYSICAL THERAPIST pt ambulated well and still recommending home with spouse assist and HH. Pt confirms he's agreeable with [facility] at d/c and cannot remember his new PCP name but states its one of the clinics in [place] and agreeable with [facility] calling to confirm his PCP. Spouse can provide transport this afternoon after her work shift. JOSÉ MIGUEL faxed d/c summary, F2F, and HH orders to [facility] to review. Plan: Patient to d/c home today via spouse POV and new [facility] to follow. YARELY Christianson
== END 2022-03-22 12:40 | disposition home or self-care (01) ==
LOC: ED 03-21 03:13 → AC 03-21 03:13
PROVIDERS: Admitting Provider Nurse Practitioner Family; Emergency Provider Emergency Medicine; Visit Provider Nurse Practitioner Family
DX: S32.10XA Unspecified fracture of sacrum, initial encounter for closed fracture (principal); S32.402A Unspecified fracture of left acetabulum, initial encounter for closed fracture; S32.512A Fracture of superior rim of left pubis, initial encounter for closed fracture; S62.102A Fracture of unspecified carpal bone, left wrist, initial encounter for closed fracture; W01.0XXA Fall on same level from slipping, tripping and stumbling without subsequent striking against object, initial encounter; Y93.01 Activity, walking, marching and hiking; I42.2 Other hypertrophic cardiomyopathy; Z20.822 Contact with and (suspected) exposure to COVID-19
CPT/HCPCS: 36415; 72192; 72220; 73110; 73502; 80048; 80053; 85025; 87635; 96374; 96375; 96376; 97116; 97162; 97166; 97530; 97535; 99284; C9803; G0378; J1170; J2405

== ENCOUNTER 2022-12-20 03:58 | Observation (INO) | payer OTHER, SELFPAY ==
[2022-03-21 04:17] VITALS: BMI 31.1
[2022-12-20] VITALS (13 sets, daily range): BP systolic 132–170; BP diastolic 75–96; PULSE 56–69; RESP 14–20; TEMP 36.6–36.8; O2SAT 95–99; BMI 31.8
--- NOTE | 2022-12-20 04:15 | DI.RAD.S_ITS ---
PROCEDURE: XR CHEST 1V INDICATIONS: chest pain TECHNIQUE: One view of the chest was acquired. COMPARISON: None. FINDINGS: Surgical changes and devices: None. Lungs and pleura: Lungs are clear. No pleural effusions or pneumothorax. Mediastinum: Mediastinal contours appear normal. Heart size is normal. Bones and chest wall: No suspicious bony lesions. Overlying soft tissues appear unremarkable. IMPRESSION: No acute cardiopulmonary process. Agree with preliminary report. Dictated by: Leonel Jack M.D. on 12/20/2022 at 8:05 Approved by: Leonel Jack M.D. on 12/20/2022 at 8:06
--- NOTE | 2022-12-20 04:20 | ED.CHESTPAIN ---
HPI - Chest Pain General Chief Complaint: Chest Pain Stated Complaint: chest pain Time Seen by Provider: 12/20/22 03:58 Source: patient Mode of arrival: Ambulatory Limitations: no limitations History of Present Illness HPI narrative: 57-year-old gentleman with a history of hypertrophic obstructive cardiomyopathy status post alcohol septal ablation in 2010 with AICD placement in December of 2011 presents with chest pain that awoke him from sleep at 1:30 a.m. this morning. Was initially described as a 7/10, a pressure across the central chest than localizing to sharp pain over his heart specifically in radiating into his left arm. Over the ensuing 2-1/2 hours it has been waxing and waning to a low of 2/10 and a high of 8/10. States took 2 Excedrin(containing 500 mg of aspirin) just prior to arrival. Was told by his shipping point inspector to never allow nitrates. Blood pressure is slightly elevated and he notes that his medications include Excedrin as mentioned above as well as [place], gingko and mother's wart. No additional prescription medications. His last visit to his shipping point inspector, Dr. Boland was in February of last year. Patient did not remember his shipping point inspector name. Apparently his primary care doctor recently left the practice and he does not remember the new practitioner he is seen. Is not sure what caused his cardiomyopathy and is unsure if he has coronary disease but he states he is not had heart attack. He denies stroke as well. He states he was in his usual state of health until he woke up with pain described as above. It was associated with mild dyspnea and diaphoresis. His was able to drive him to the emergency department. Related Data Previous Rx's Medication Instructions Recorded anthony #1 ea 03/21/22 anthony #1 ea 03/21/22 Allergies Allergy/AdvReac Type Severity Reaction Status Date / Time diltiazem AdvReac Fatigued Verified 12/20/22 06:11 metoprolol AdvReac dyspnea Verified 12/20/22 06:11 nitroglycerin AdvReac unknown Verified 12/20/22 06:11 verapamil AdvReac Headache Verified 12/20/22 06:11 Review of Systems Review of Systems Narrative: Pertinent positive and negative findings as per HPI Patient History Medical History (Updated 12/20/22 @ 06:54 by Dominga Macedo MD) History of cardioversion Hypertrophic cardiomyopathy Presence of combination internal cardiac defibrillator (ICD) and pacemaker Surgical History History of cardiac radiofrequency ablation Social History household members: spouse Smoking Status: Never smoker alcohol intake: former Smoking Status: Never smoker Substance Use Type: does not use Exam Initial Vital Signs Initial Vital Signs: Vital Signs Pulse Rate 63 12/20/22 04:02 Blood Pressure 170/96 H 12/20/22 04:02 Pulse Oximetry 98 12/20/22 04:02 General: Healthy appearing, in no acute distress. Able to give a complete and coherent history. Well-nourished well-developed HEENT: Moist mucous membranes, normal sclera with reactive pupils, missing multiple teeth Neck: No JVD, supple Respiratory: Lungs are clear to auscultation, no wheezing no rales no rhonchi. Full and symmetrical air movement Cardiac: Regular rate and rhythm no murmurs no bruits Abdomen: Soft, nontender, good bowel tones, no flank pain Skin: Warm and dry currently, no rashes Neurologic: Grossly neurologically intact with no obvious asymmetries or abnormalities Extremities: No trauma, well perfused Psych: Cooperative, appropriate insight and affect Course Orders Ordered: ED Orders 12/20/22 04:00 Complete Blood Count AUTO DIFF Stat Comprehensive Metabolic Panel Stat Lipase Stat Troponin & CK Cardiac Panel Stat 12/20/22 04:15 XR chest 1V Stat EKG-12 Lead Stat Vital Signs Vital signs: Vital Signs - 8 hr 12/20/22 04:07 12/20/22 04:02 12/20/22 04:02 Temperature 97.8 F Pulse Rate 69 63 Respiratory Rate 16 Blood Pressure 170/96 H 170/96 H Pulse Oximetry 97 98 Oxygen Delivery Method Room Air 12/20/22 04:11 12/20/22 04:11 12/20/22 04:30 Temperature Pulse Rate 62 Respiratory Rate 20 Blood Pressure 165/87 H 143/86 H Pulse Oximetry 97 Oxygen Delivery Method 12/20/22 04:30 12/20/22 05:00 12/20/22 05:00 Temperature Pulse Rate 56 L 60 Respiratory Rate 14 16 Blood Pressure 158/88 H Pulse Oximetry 96 95 Oxygen Delivery Method MDM - Chest Pain Lab Data 12/20/22 04:00 12/20/22 04:00 Labs: Lab Results 12/20/22 12/20/22 Range/Units 04:00 04:00 WBC 6.9 (4.5-11.0) X10^3/uL RBC 5.11 (4.5-5.9) X10^6/uL Hgb 15.6 (13.5-17.5) g/dL Hct 44.4 (41-53) % MCV 86.9 (80-100) fL MCH 30.6 (26-34) PG MCHC 35.3 (30-36) % RDW 13.3 (11.6-14.8) % Plt Count 171 (150-400) X10^3/uL Neut % (Auto) 53.9 (50-75) % Lymph % (Auto) 31.3 (25-40) % [place] % (Auto) 12.1 (3-14) % Eos % (Auto) 2.0 (2-4) % Baso % (Auto) 0.7 (0-2) % Neut # (Auto) 3700 (9386-5078) /uL Lymph # (Auto) 2200 (6033-4342) /uL [place] # (Auto) 800 (0-900) /uL Eos # (Auto) 100 (0-450) /uL Baso # (Auto) 0 (0-100) /uL Sodium 139 (137-145) mmol/L Potassium 3.7 (3.4-5.1) mmol/L Chloride 106 (98-107) mmol/L Carbon Dioxide 25 (22-32) mmol/L BUN 16 (9-20) mg/dL Creatinine 0.75 (0.66-1.25) mg/dL Estimated GFR > 60 (>60) mL/min BUN/Creatinine Ratio 21.3 (6-22) Glucose 119 H (70-100) mg/dL Calcium 9.2 (8.4-10.2) mg/dL Total Bilirubin 0.6 (0.2-1.3) mg/dL AST 42 (17-59) IU/L ALT 30 (<50) IU/L Alkaline Phosphatase 58 (38-126) U/L Total Creatine Kinase 525 H (55-170) U/L CK-MB (CK-2) 2.89 H (<2.37) ng/mL CK-MB (CK-2) Rel Index 0.6 L (1.5-5.0) % Troponin I 0.020 (0.01-0.034) ng/mL Total Protein 6.8 (6.3-8.2) g/dL Albumin 4.3 (3.5-5.0) g/dL Globulin 2.5 (1.7-4.1) g/dL Albumin/Globulin Ratio 1.7 (1.0-2.8) Lipase 164 (23-300) U/L MDM Narrative Medical decision making narrative: CC: 57-year-old gentleman with history of hypertrophic cardiomyopathy and hypertension presents with chest pain starting approximately 2-1/2 hours prior to arrival in the emergency department. This is a new problem with life-threatening potential prognosis. Complicating co-morbidities: Hypertrophic cardiomyopathy, untreated hypertension, obesity Data collected from: patient, Social determinants of health that may influence the patients condition: Recent change in healthcare providers and minimal interaction with allopathic physicians. Reluctance to consider prescription allopathic medications Medical records reviewed: Cardiology notes from [facility], Dr. Knowles, are reviewed as well as echocardiogram from March of 2022 showing an ejection fraction at 60-65% with basal septum measuring 1.5 cm in mid septum is probably over 2 cm in thickness. No evidence for significant left ventricular outflow tract obstruction and no significant valvular abnormalities Differential considered: Acute coronary syndrome, rhythm abnormality, congestive heart failure, pneumonia, pneumothorax, viral syndrome, Exam documented above, pertinent findings include: Fairly benign exam without clinical signs of congestive heart failure. He is not currently diaphoretic and pain is at a 2/10. Lab Test results independently reviewed as above. Pertinent findings: CBC within normal limits CMP unremarkable Total creatinine kinase is slightly elevated at 525. CK-MB relative index is low at 0.6 Initial troponin is 0.02 Independently reviewed EKG Sinus rhythm at a rate of 64, right bundle branch block, ST depression anterolaterally repeat EKG at 6am that shows continued ST depression but no evolving changes Imaging studies independently reviewed: Chest x-ray is unremarkable with normal cardiac silhouette no evidence of vascular congestion Consultations: Treatments: patient took 500mg asprin prior to arrival, was told by his shipping point inspector to not use nitrates at all. Re-evaluations:0600 pain is present but rated at 1/10 HEART score: 2/1/1/2/0= 6 Repeat trop remains negative Discussion:57 you gentleman with chest pain since 09/11 in the morning. Known cardiomyopathy with pacer defibrillator in place. No defibrillator discharges in the last number of years. Notes that his blood pressure has been creeping up, there has been significantly more stressors related to issues with her children of late. He actually would consider restarting blood pressure medication and recognizes that his blood pressure is a bit high. Notes from Dr. Knowles had indicated that he would start him on 50 mg of losartan as a next choice. Patient is willing to consider that. Given his continued pain, heart score is 6 with T wave changes laterally but no acute troponin abnormalities will recommend hospitalization and will discuss with hospitalist, Dr López, admitting provider. Discharge Plan Departure Patient Disposition: Admitted as Observation Clinical Impression: Chest pain Qualifiers: Chest pain type: unspecified Qualified Code(s): R07.9 - Chest pain, unspecified Prescriptions: No Action (DME) walker Misc See Rx Instructions .Route Qty: 1 0RF Rx Instructions: One 4 wheeled walker (DME) walker Misc See Rx Instructions .Route Qty: 1 0RF Rx Instructions: One walker with platform attachment Admit Date/Time: 12/20/22 06:52 Admit Provider: Austyn López
[2022-12-20 04:29] LABS: Add Manual Diff / Slide Review NO; Basophils Absolute Auto 0 /uL (0-100); Basophils Percent Auto 0.7 % (0-2); Eosinophils Absolute Auto 100 /uL (0-450); Hematocrit 44.4 % (41-53); Hemoglobin 15.6 g/dL (13.5-17.5); Lymphocytes Absolute Auto 2200 /uL (1100-4500); Lymphocytes Percent Auto 31.3 % (25-40); Mean Corpuscular HGB Conc 35.3 % (30-36); Mean Corpuscular Hemoglobin 30.6 PG (26-34); Mean Corpuscular Volume 86.9 fL (80-100); Monocytes Absolute Auto 800 /uL (0-900); Monocytes Percent Auto 12.1 % (3-14); Neutrophils Absolute Auto 3700 /uL (1500-7000); Neutrophils Percent Auto 53.9 % (50-75); Platelet Count 171 X10^3/uL (150-400); Red Blood Cell Count 5.11 X10^6/uL (4.5-5.9); Red Cell Distribution Width 13.3 % (11.6-14.8); White Blood Cell Count 6.9 X10^3/uL (4.5-11.0)
[2022-12-20 04:34] LABS: Alanine Aminotransferase 30 IU/L (<50); Albumin 4.3 g/dL (3.5-5.0); Albumin Globulin Ratio 1.7 (1.0-2.8); Alkaline Phosphatase 58 U/L (38-126); Aspartate Aminotransferase 42 IU/L (17-59); BUN Creatinine Ratio 21.3 (6-22); Bilirubin Total 0.6 mg/dL (0.2-1.3); Blood Urea Nitrogen 16 mg/dL (9-20); Calcium 9.2 mg/dL (8.4-10.2); Carbon Dioxide 25 mmol/L (22-32); Creatine Kinase 525 U/L (55-170); Estimated Glomerular Filt Rate > 60 mL/min (>60); Globulin 2.5 g/dL (1.7-4.1); Glucose 119 mg/dL (70-100); Lipase 164 U/L (23-300); Total Protein 6.8 g/dL (6.3-8.2)
[2022-12-20 04:41] LABS: Chloride 106 mmol/L (98-107); HEMOLYSIS 18 (0-50); Potassium 3.7 mmol/L (3.4-5.1); Sodium 139 mmol/L (137-145)
[2022-12-20 04:54] LABS: CKMB % Relative Index 0.6 % (1.5-5.0); Creatine Kinase MB 2.89 ng/mL (<2.37)
[2022-12-20 06:42] LABS: Troponin I 0.017 ng/mL (0.01-0.034)
[2022-12-20 06:42] LABS: COVID19 -Nasal RAPID Negative (Negative)
--- NOTE | 2022-12-20 07:03 | DI.NM.S_ITS ---
PROCEDURE: NM EXERCISE TREADMILL NON NUC COMPARISON: None INDICATIONS: Chest pain FINDINGS: Rest ECG sinus rhythm, RBBB, nonspecific ST and T wave changes. Tez protocol 9:00, maximum heart rate 152 bpm (93% peak predicted), maximum blood pressure 210/112, 10.1 METS, LEONIE +4%. Stress ECG sinus tachycardia, RBBB, slight worsening of the baseline ST abnormalities that do not meet criteria for ischemia. The patient complained of 3 out of 10 chest pain 8 minutes into exercise that decreased to 1 out of 10 after 4 minutes into recovery. IMPRESSION: Borderline but probably low risk study. Baseline ST abnormalities slightly worsened with exercise however did not meet criteria for ischemia. Borderline hypertensive response to exercise. Normal exercise capacity. Dictated by: Su Holden D.O. on 12/20/2022 at 15:39 Approved by: Su Holden D.O. on 12/20/2022 at 15:49
--- NOTE | 2022-12-20 07:10 | PM.HP.1 ---
History of Present Illness History of Present Illness Date Patient Seen: 12/20/22 Time Patient Seen: 06:50 Chief complaint: chest pain Narrative: Mr. Robles is a 57M with H HOCM s/p alcohol ablation in 2010, s/p AICD who presents with chest pain. He was in normal state of health and then woke from sleep at 1:30am with chest pain. Had pressure like pain over his left chest that radiated to his left arm. He had mild shortness of breath. No cough, reflux, or fevers. He took excedrin at home (which contains aspirin). His automation developer told him not to take nitrates. He has had no recent stress test. In the ED workup was done, afebrile, heart rate 60s, respiratory rate teens, blood pressure 140s-170s/80s-90s, sats 97% on room air. Labs reviewed by me and notable for WBC 6.9, hgb 15.6, plts 171. Creatinine 0.75. Trop 0.20->0.17. EKG with ST changes in lateral leads. Chest xray with no acute process. He was admitted for further workup of chest pain. [facility] Medical History History of cardioversion Hypertrophic cardiomyopathy Presence of combination internal cardiac defibrillator (ICD) and pacemaker Surgical History History of cardiac radiofrequency ablation Social History household members: spouse Smoking Status: Never smoker alcohol intake: former Meds Home Medications and Allergies Home Medications Medication Instructions Recorded Confirmed Type walker #1 ea 03/21/22 Rx walker #1 ea 03/21/22 Rx Allergies Allergy/AdvReac Type Severity Reaction Status Date / Time diltiazem AdvReac Fatigued Verified 12/20/22 06:11 metoprolol AdvReac dyspnea Verified 12/20/22 06:11 nitroglycerin AdvReac unknown Verified 12/20/22 06:11 verapamil AdvReac Headache Verified 12/20/22 06:11 Review of Systems Review of Systems Narrative: 14 systems reviewed and negative aside from what is noted in HPI Exam Vital Signs (past 8 hours): - 12/20/22 04:07 12/20/22 04:02 12/20/22 04:02 Temperature 97.8 F Pulse Rate 69 63 Respiratory Rate 16 Blood Pressure 170/96 H 170/96 H Pulse Oximetry 97 98 Oxygen Delivery Method Room Air 12/20/22 04:11 12/20/22 04:11 12/20/22 04:30 Temperature Pulse Rate 62 Respiratory Rate 20 Blood Pressure 165/87 H 143/86 H Pulse Oximetry 97 Oxygen Delivery Method 12/20/22 04:30 12/20/22 05:00 12/20/22 05:00 Temperature Pulse Rate 56 L 60 Respiratory Rate 14 16 Blood Pressure 158/88 H Pulse Oximetry 96 95 Oxygen Delivery Method 12/20/22 05:30 12/20/22 05:30 12/20/22 06:00 Temperature Pulse Rate 60 Respiratory Rate 17 Blood Pressure 154/87 H 144/82 H Pulse Oximetry 95 Oxygen Delivery Method 12/20/22 06:00 12/20/22 06:30 12/20/22 06:30 Temperature Pulse Rate 57 L 57 L Respiratory Rate 18 17 Blood Pressure 156/90 H Pulse Oximetry 97 98 Oxygen Delivery Method 12/20/22 07:01 12/20/22 07:01 Temperature Pulse Rate 58 L Respiratory Rate 20 Blood Pressure 152/77 H Pulse Oximetry 95 Oxygen Delivery Method Oxygen Delivery Method Room Air Narrative Exam Narrative: GEN: no acute distress HEENT: moist mucous membranes, PERRL NECK: trachea midline, no JVD PULM: clear bilaterally, no wheezes, rhonchi, rales CV: regular rate and rhythm, no murmurs ABD: soft, nontender, nondistended, no organomegayl EXT: warm and well perfused, no edema NEURO: awake, alert, oriented, no focal deficits Objective Labs 12/20/22 04:00 12/20/22 04:00 Labs: Laboratory Results - last 24 hr 12/20/22 12/20/22 12/20/22 04:00 04:00 06:00 WBC 6.9 RBC 5.11 Hgb 15.6 Hct 44.4 MCV 86.9 MCH 30.6 MCHC 35.3 RDW 13.3 Plt Count 171 Neut % (Auto) 53.9 Lymph % (Auto) 31.3 [place] % (Auto) 12.1 Eos % (Auto) 2.0 Baso % (Auto) 0.7 Neut # (Auto) 3700 Lymph # (Auto) 2200 [place] # (Auto) 800 Eos # (Auto) 100 Baso # (Auto) 0 Sodium 139 Potassium 3.7 Chloride 106 Carbon Dioxide 25 BUN 16 Creatinine 0.75 Estimated GFR > 60 BUN/Creatinine Ratio 21.3 Glucose 119 H Calcium 9.2 Total Bilirubin 0.6 AST 42 ALT 30 Alkaline Phosphatase 58 Total Creatine Kinase 525 H CK-MB (CK-2) 2.89 H CK-MB (CK-2) Rel Index 0.6 L Troponin I 0.020 0.017 Total Protein 6.8 Albumin 4.3 Globulin 2.5 Albumin/Globulin Ratio 1.7 Lipase 164 SARS-CoV-2 (PCR) 12/20/22 06:23 WBC RBC Hgb Hct MCV MCH MCHC RDW Plt Count Neut % (Auto) Lymph % (Auto) [place] % (Auto) Eos % (Auto) Baso % (Auto) Neut # (Auto) Lymph # (Auto) [place] # (Auto) Eos # (Auto) Baso # (Auto) Sodium Potassium Chloride Carbon Dioxide BUN Creatinine Estimated GFR BUN/Creatinine Ratio Glucose Calcium Total Bilirubin AST ALT Alkaline Phosphatase Total Creatine Kinase CK-MB (CK-2) CK-MB (CK-2) Rel Index Troponin I Total Protein Albumin Globulin Albumin/Globulin Ratio Lipase SARS-CoV-2 (PCR) Negative Assessment & Plan Assessment & Plan narrative: 1. Acute chest pain with history of hypertrophic cardiomyopathy -chest pain acute onset, with some concern for cardiac origin -HEART score of 5 -initial trop 0.020->0.017 -EKG with nonspecific t-wave changes -ordered for stress test -if unable to stress today will trend troponins further -per cardiology avoid nitrates I discussed plan and obtained history from patient and his . I discussed plan of care with ED physician, bedside nurse. I have reviewed labs, imaging, previous medical notes. CODE: Full Proxy: Sharmila Robles, spouse [facility] - Meds 'Current medications' to include all prescriptions, [id number] products, herbals, cannabis/cannabidiol products, and vitamin/mineral/dietary (nutritional) supplements. I have utilized all available resources to obtain, update, or review the patient?s current medications. [If Yes, STOP here]: Yes
--- NOTE | 2022-12-20 07:42 | DI.ECHO.S_ITS ---
[facility] +---------+ [facility] +---------+ : : [address] : : : : [id number] : : : : Phone: [phone]+ Echocardiogram Report + + :Name: DANIEL TURNER Study Date: 12/20/2022 Height: 72 in : :[facility] ReadingLocation: Weight: 235 lb: : Gender: Male BSA: 2.3 m2 : :: 1965 Age: 57 yrs : :Reason For Study: CHEST PAIN, HISTORY OF SEPTAL ABLATION : :Ordering Physician: CATHERINE, : :CINTIA Mendieta Performed By: Asuncion Sanchez : :Referring: CINTIA ALEXANDER : + + Interpretation Summary The ejection fraction is estimated to be 55-60%. The basal septum measures 0.8 cm in thickness (previously measure at 1.5cm in 03/2022). The mid septum is 2.4cm in thickness Grade I diastolic dysfunction The right ventricular systolic function is normal. There is a pacemaker lead in the right ventricle. The inferior vena cava was not well visualized. No significant valvular abnormality. Procedure: A two-dimensional transthoracic echocardiogram with color flow and Doppler was performed. The study quality was technically adequate. There is no prior echocardiogram noted for this patient. The heart rate ranged between 50-71 bpm during the study. Left Ventricle: The basal septum measures 0.8 cm in thickness. The mid septum is 2.4cm in thickness. The ejection fraction is estimated to be 55-60%. There are no obvious focal wall motion abnormalities noted but poor endocardial definition reduces the sensitivity for the detection of such. Grade I diastolic dysfunction. Right Ventricle: The right ventricle is mildly dilated. There is a pacemaker lead in the right ventricle. The right ventricular systolic function is normal. Atria: The left atrium is moderately dilated. Right atrial size is normal. There is no Doppler evidence for an interatrial shunt. Mitral Valve: The mitral valve leaflets appear borderline thickened, but open well. There is trace mitral regurgitation. Aortic Valve: The aortic valve is trileaflet. The aortic valve opens well. There is no aortic valve stenosis. There is trace aortic regurgitation. Tricuspid Valve: The tricuspid valve leaflets are thin and pliable. There is mild tricuspid regurgitation. Pulmonic Valve: The pulmonic valve is not well seen, but is grossly normal. There is mild pulmonic regurgitation. Great Vessels: The aortic root is normal size. The dimensions of the ascending aorta are normal. The inferior vena cava was not well visualized. Pericardium/ Pleura There is no pericardial effusion. There is no pleural effusion. MMode/2D Measurements & Calculations LVIDd: 4.1 cm LVOT diam: 2.4 cm LVIDs: 2.5 cm Ao root diam: 3.2 cm FS: 40.5 % asc Aorta Diam: 3.8 cm IVSd: 2.2 cm Ao Arch Diam (Prox Trans): 3.4 cm LVPWd: 1.0 cm LV estes. diameter/BSA (cm/m^2): 1.8 LV sys. diameter/BSA (cm/m^2): 1.1 LA A2 area: 27.5 cm2 RA long axis: 5.5 cm LA A4 area: 26.6 cm2 RA area: 18.7 cm2 LA length (vol): 6.3 cm RA vol: 53.7 ml LA vol: 97.9 ml RA : 23.5 ml/m2 LA vol index: 42.9 ml/m2 RVD1 (basal): 4.4 cm RVD2 (mid): 3.8 cm TAPSE: 2.4 cm Doppler Measurements & Calculations Ao V2 max: 104.7 cm/sec LVOT [place]: 93.7 cm/sec Ao V2 mean: 72.4 cm/sec LV V1 max P.5 mmHg Ao max P.4 mmHg LV V1 VTI: 19.1 cm Ao mean P.5 mmHg MAGDALENA(I,D): 4.1 cm2 Ao V2 VTI: 21.5 cm MAGDALENA(V,D): 4.2 cm2 sev ratio: 0.89 MAGDALENA indexed to BSA (cm^2/m^2): 1.8 MV E max keaton: 57.0 cm/sec TR max keaton: 255.2 cm/sec MV A max keaton: 85.0 cm/sec TR max P.0 mmHg MV E/A: 0.67 PA V2 max: 100.2 cm/sec Med Peak E' Keaton: 5.0 cm/sec PA V2 mean: 69.1 cm/sec E/E' med: 11.3 PA mean P.2 mmHg Lat Peak E' Keaton: 6.4 cm/sec PA pr(Accel): 17.3 mmHg E/E' lat: 8.9 E/e' average: 10.1 MV dec time: 0.17 sec [facility] 88.9 ml Reading Physician:PM
[2022-12-20] MEDS: BUTALB/APAP/CAFFEINE 50/325/40 TABLET 1 EACH PO (09:42)
[2022-12-20] MEDS: ENOXAPARIN 40 MG/0.4 ML SYRINGE SUBCUT (09:42)
--- NOTE | 2022-12-20 15:58 | P.DS_ITS ---
History of Present Illness History of Present Illness Date Patient Seen: 12/20/22 Time Patient Seen: 06:50 Chief complaint: chest pain Narrative: Mr. Robles is a 57M with PMH HOCM s/p alcohol ablation in 2010, s/p AICD who presents with chest pain. He was in normal state of health and then woke from sleep at 1:30am with chest pain. Had pressure like pain over his left chest that radiated to his left arm. He had mild shortness of breath. No cough, reflux, or fevers. He took excedrin at home (which contains aspirin). His continuous improvement black belt told him not to take nitrates. He has had no recent stress test. In the ED workup was done, afebrile, heart rate 60s, respiratory rate teens, blood pressure 140s-170s/80s-90s, sats 97% on room air. Labs reviewed by me and notable for WBC 6.9, hgb 15.6, plts 171. Creatinine 0.75. Trop 0.20->0.17. EKG with ST changes in lateral leads. Chest xray with no acute process. He was admitted for further workup of chest pain. Discharge Providers Provider Date of admission: 12/20/22 06:52 Discharge Date: 12/20/22 Discharge provider: Timmy Eng DO Summary Hospital Course Discharge Diagnosis: 1. Acute chest pain with history of hypertrophic cardiomyopathy s/p alcohol ablation -chest pain acute onset, with some concern for cardiac origin -HEART score of 5, LDL 67 and TSH normal. A1c pending. -initial trop 0.020->0.017->0.018 -EKG with nonspecific t-wave changes -exercise stress test was reassuring, echo showed EF 55-60%, no WMA and post-ablation changes with septal thickness basal of 0.8 down from 1.5cm in Mar 2022, with mid septum thickness of 2.4cm -per cardiology can start on verapamil for HTN and patient's frequent headaches -will f/u with Dr. Knowles his continuous improvement black belt outpatient -start ASA 81mg daily for primary prevention 2. Undiagnosed HTN -patient notes BP at home up to 160's, also has frequent headaches for which he takes excedrin -start verapamil ER 180mg daily Hospital Course: Admitted for chest pain which awoke him from sleep with palpitations. EKG, troponin, echo and stress test reassuring. Started on verapamil for HTN and ASA and will f/u with Dr. Knowles his outpatient continuous improvement black belt. Time Spent with Patient Time spent: Greater than 30 minutes Exam Vital Signs (past 8 hours): - 12/20/22 08:00 12/20/22 08:00 12/20/22 08:43 Temperature 98.2 F Pulse Rate 57 L 57 L Respiratory Rate 14 16 Blood Pressure 156/85 H 136/83 Pulse Oximetry 97 99 Oxygen Flow Rate 0 12/20/22 15:19 Temperature 98.1 F Pulse Rate 67 Respiratory Rate 18 Blood Pressure 132/75 Pulse Oximetry 99 Oxygen Flow Rate 0 Oxygen Delivery Method Room Air Oxygen Flow Rate 0 Narrative Exam Narrative: GEN: no acute distress HEENT: moist mucous membranes, PERRL NECK: trachea midline, no JVD PULM: clear bilaterally, no wheezes, rhonchi, rales CV: regular rate and rhythm, no murmurs ABD: soft, nontender, nondistended, no organomegayl EXT: warm and well perfused, no edema NEURO: awake, alert, oriented, no focal deficits Objective Labs 12/20/22 04:00 12/20/22 04:00 Labs: Laboratory Results - last 24 hr 12/20/22 12/20/22 12/20/22 04:00 04:00 06:00 WBC 6.9 RBC 5.11 Hgb 15.6 Hct 44.4 MCV 86.9 MCH 30.6 MCHC 35.3 RDW 13.3 Plt Count 171 Neut % (Auto) 53.9 Lymph % (Auto) 31.3 Hamlin % (Auto) 12.1 Eos % (Auto) 2.0 Baso % (Auto) 0.7 Neut # (Auto) 3700 Lymph # (Auto) 2200 Hamlin # (Auto) 800 Eos # (Auto) 100 Baso # (Auto) 0 Sodium 139 Potassium 3.7 Chloride 106 Carbon Dioxide 25 BUN 16 Creatinine 0.75 Estimated GFR > 60 BUN/Creatinine Ratio 21.3 Glucose 119 H Calcium 9.2 Total Bilirubin 0.6 AST 42 ALT 30 Alkaline Phosphatase 58 Total Creatine Kinase 525 H CK-MB (CK-2) 2.89 H CK-MB (CK-2) Rel Index 0.6 L Troponin I 0.020 0.017 Total Protein 6.8 Albumin 4.3 Globulin 2.5 Albumin/Globulin Ratio 1.7 Lipase 164 SARS-CoV-2 (PCR) 12/20/22 06:23 WBC RBC Hgb Hct MCV MCH MCHC RDW Plt Count Neut % (Auto) Lymph % (Auto) Hamlin % (Auto) Eos % (Auto) Baso % (Auto) Neut # (Auto) Lymph # (Auto) Hamlin # (Auto) Eos # (Auto) Baso # (Auto) Sodium Potassium Chloride Carbon Dioxide BUN Creatinine Estimated GFR BUN/Creatinine Ratio Glucose Calcium Total Bilirubin AST ALT Alkaline Phosphatase Total Creatine Kinase CK-MB (CK-2) CK-MB (CK-2) Rel Index Troponin I Total Protein Albumin Globulin Albumin/Globulin Ratio Lipase SARS-CoV-2 (PCR) Negative [facility] Medical History History of cardioversion Hypertrophic cardiomyopathy Presence of combination internal cardiac defibrillator (ICD) and pacemaker Surgical History History of cardiac radiofrequency ablation Social History household members: spouse Smoking Status: Former smoker alcohol intake: former Discharge Plan Discharge Plan Patient Disposition: Home Provider Discharge Comment: You were admitted for chest pain. Your EKG, troponins, echo and stress test were all reassuring. You may be having high blood pressure which is causing your headaches and chest pain, so the continuous improvement black belt recommended you start verapamil daily as well as a baby aspirin. Please see Dr. Knowles in clinic soon. Discharge orders & Medications Prescriptions: New verapamil 180 mg capsule,ext rel. pellets 24 hr 180 mg PO DAILY Qty: 90 0RF aspirin 81 mg Tablet,Delayed Release (Dr/Ec) 81 mg PO DAILY Qty: 30 0RF No Action (DME) walker [facility] See Rx Instructions .Route Qty: 1 0RF Rx Instructions: One walker with platform attachment (DME) Ultra-Light Rollator Misc See Rx Instructions .ROUTE Rx Instructions: One 4 wheeled walker Follow up/Referrals: Chintan Knowles MD [Physician] - 2 Weeks Visit Report/Discharge Packet Stand Alone Forms: Patient Portal/API, Stroke Signs & Symptoms Discharge Data Attending Provider: Austyn López Admit Date/Time: 12/20/22 06:52 Discharges patient from system. Discharge Date/Time: 12/20/22 16:30 Quality VTE Deep Vein Thrombosis/Pulmonary Embolism Present on Admission: No
[2022-12-20 16:49] LABS: Cholesterol 160 mg/dL (140-199); HDL Cholesterol 61 mg/dL (40-60); LDL Cholesterol Calculated 67 mg/dL (<100); Triglycerides 162 mg/dL (35-150)
[2022-12-20 17:20] LABS: TSH w/ Reflex to FT4 0.71 uIU/mL (0.47-4.68)
[2022-12-20 17:34] LABS: Troponin I 0.018 ng/mL (0.01-0.034)
[2022-12-21 05:32] LABS: x Labcorp Estim. Avg Glu (eAG) 111 mg/dL (.); x Labcorp Hemoglobin A1c 5.5 % (4.8-5.6)
== END 2022-12-20 16:30 | disposition home or self-care (01) ==
LOC: ED 04:20 → AC 06:53
PROVIDERS: Student in an Organized Health Care Education/Training Program; Admitting Provider Internal Medicine; Emergency Provider Emergency Medicine; Visit Provider Internal Medicine
DX: R07.9 Chest pain, unspecified (principal); I10 Essential (primary) hypertension; I42.2 Other hypertrophic cardiomyopathy; R03.0 Elevated blood-pressure reading, without diagnosis of hypertension
CPT/HCPCS: 36415; 71045; 80053; 80061; 82550; 82553; 83036; 83690; 84443; 84484; 85025; 87635; 93005; 93017; 93306; 96372; 99284; C9803; G0378; J1650

== ENCOUNTER → 2024-02-27 09:04 | Outpatient (CLI) | payer OTHER, SELFPAY ==
[2022-12-20 07:00] VITALS: BMI 31.8
--- NOTE | 2024-02-27 09:06 | DI.ECHO.S_ITS ---
[facility]---------+ [facility] : : [address] : : [place] : : [id number] : : Phone: [phone] Echocardiogram Report + + :Name: DANIEL TURNER Study Date: 02/27/2024 Height: 72 in : :Hospital ReadingLocation: Weight: 240 lb : : Gender: Male BSA: 2.3 m2 : :: 1965 Age: 58 yrs BP: 133/87 mmHg: :Reason For Study: HYPERTROPHIC CARDIOMYOPATHY : :Ordering Physician: JULIO CESAR, : :ESVIN Performed By: Asuncion Sanchez : :Referring: ESVIN KNOWLES : + + Interpretation Summary 1) Normal left ventricular size and systolic function (EF 55-60%). 2) The basal septum measures 1.1cm in thickness (less than mid septum due to history of alcohol septal ablation). Mid septum thickness 2.3cm. Posterior wall thickness 1.3cm. 3) Mildly enlarged right ventricle with normal function. There is a pacemaker lead in the right ventricle. 3) There is no echo evidence for significant left ventricular outflow tract obstruction. 4) No significant valvular abnormalities. 5) The ascending aorta is mildly enlarged at 3.7cm. 6) Compared to the Echo done 12/20/2022, no significant change. Procedure: A two-dimensional transthoracic echocardiogram with color flow and Doppler was performed. The study quality was technically adequate. Comparison is made with the echocardiogram of 12/20/2022. The patient was in sinus bradycardia with heart rates between 55-67 bpm during the exam. Left Ventricle: Basal septum 1cm. Mid septum 2.3cm. Posterior wall thickness 1.3cm. The left ventricle is normal in size. The ejection fraction is estimated to be 55-60%. Basal septum akinesis due to prior septal ablation. Right Ventricle: The right ventricle is mildly dilated. There is a pacemaker lead in the right ventricle. The right ventricular systolic function is normal. Atria: The left atrial size is normal. Right atrial size is normal. There is no Doppler evidence for an interatrial shunt. Mitral Valve: The mitral valve leaflets appear borderline thickened, but open well. There is trace mitral regurgitation. Aortic Valve: The aortic valve is trileaflet. The aortic valve opens well. There is no aortic valve stenosis. There is trace aortic regurgitation. Tricuspid Valve: The tricuspid valve leaflets are thin and pliable. There is mild tricuspid regurgitation. The right ventricular systolic pressure is estimated to be at least 26 mmHg based on an estimated right atrial pressure of 3 mm Hg. Pulmonic Valve: The pulmonic valve leaflets are thin and pliable; valve motion is normal. There is mild pulmonic regurgitation. Great Vessels: The aortic root is normal size. The dimensions of the ascending aorta are normal. The inferior vena cava was not well visualized. Pericardium/ Pleura There is no pericardial effusion. There is no pleural effusion. MMode/2D Measurements & Calculations LVIDd: 4.8 cm LVOT diam: 2.1 cm LVIDs: 3.1 cm Ao root diam: 2.9 cm FS: 35.9 % asc Aorta Diam: 3.7 cm IVSd: 0.95 cm Ao Arch Diam (Prox Trans): 3.3 cm LVPWd: 1.0 cm LV estes. diameter/BSA (cm/m^2): 2.1 LV sys. diameter/BSA (cm/m^2): 1.3 LA A2 area: 20.1 cm2 RA long axis: 5.2 cm LA A4 area: 24.7 cm2 RA area: 16.5 cm2 LA length (vol): 5.8 cm RA vol: 44.9 ml LA vol: 72.7 ml RA : 19.5 ml/m2 LA vol index: 31.6 ml/m2 RVD1 (basal): 4.6 cm TAPSE: 2.0 cm Doppler Measurements & Calculations Ao V2 max: 116.0 cm/sec LVOT Max Keaton: 99.8 cm/sec Ao V2 mean: 84.6 cm/sec LV V1 max P.0 mmHg Ao max P.4 mmHg LV V1 VTI: 19.9 cm Ao mean P.0 mmHg MAGDALENA(I,D): 3.0 cm2 Ao V2 VTI: 23.5 cm MAGDALENA(V,D): 3.0 cm2 sev ratio: 0.85 MAGDALENA indexed to BSA (cm^2/m^2): 1.3 MV E max keaton: 50.2 cm/sec TR max keaton: 238.3 cm/sec MV A max keaton: 71.2 cm/sec TR max P.7 mmHg MV E/A: 0.71 PA V2 max: 88.4 cm/sec Med Peak E' Keaton: 4.0 cm/sec PA V2 mean: 63.9 cm/sec E/E' med: 12.7 PA mean P.8 mmHg Lat Peak E' Keaton: 5.5 cm/sec PA pr(Accel): 31.0 mmHg E/E' lat: 9.1 E/e' average: 10.9 MV dec time: 0.33 sec SV(OT): 70.5 ml Reading Physician:12:36 PM
== END ==
LOC: ECHO 09:05
PROVIDERS: Referring Provider Internal Medicine Cardiovascular Disease; Visit Provider Internal Medicine Cardiovascular Disease
DX: I07.1 Rheumatic tricuspid insufficiency (principal); I42.2 Other hypertrophic cardiomyopathy
CPT/HCPCS: 93306

== ENCOUNTER → 2024-05-13 07:58 | Outpatient (CLI) | payer OTHER, SELFPAY ==
[2022-12-20 07:00] VITALS: BMI 31.8
--- NOTE | 2024-05-13 08:00 | DI.NM.S_ITS ---
PROCEDURE: NM WHITNEY PERF SPECT REST & STR Rest and exercise myocardial perfusion SPECT with gated imaging and ejection fraction RADIOPHARMACEUTICAL: 12.3 mCi Tc-99m sestamibi IV at rest and 25.8 mCi Tc-99m sestamibi IV at peak exercise. A [id number] was performed. INDICATIONS: HARO TECHNIQUE: Radiopharmaceutical was injected at peak stress test, and also at rest. SPECT images were obtained. SPECT myocardial perfusion images were displayed in short axis, horizontal long axis, and vertical long axis views. Gated images were reviewed using Catawiki software. COMPARISON: None. CARDIAC STRESS: A standard Tez treadmill exercise tolerance test was performed by the patient under the supervision of an attending staff. The patient exercised for 8 minutes and 46 seconds; 10.1 METS; functional aerobic impairment (LEONIE) is +4% %. Hemodynamic data: There is normal blood pressure and heart rate response to exercise stress. Patient achieved 89% of maximum predicted heart rate at peak exercise. Symptoms: Patient confirmed 1/10 chest pain at peak exercise and was observed to have severe shortness of breath. EKG: Rest ECG sinus rhythm. Exercise ECG sinus tachycardia, no ST segment changes. Frequent monomorphic PVCs noted during recovery. FINDINGS: Raw data: There is good myocardial labeling by radiotracer. No significant motion artifacts. Cshh-ce-momwm ratio is 0.28 (normal is less than 0.38 for sestamibi tracer, and less than 0.50 for thallium tracer). Left ventricle function: Gated images demonstrate normal left ventricle wall thickening. No segmental wall motion abnormality. No transient ischemic dilation; TID is 0.85 (normal less than 1.3). The left ventricle resting end-diastolic volume is 116 mL. Left ventricle stress ejection fraction is 72%; normal values are above 45%. Myocardial perfusion: There is normal distribution of activity in the left and right ventricular myocardium. No fixed or reversible perfusion defects. IMPRESSION: Low risk study for ischemia. No evidence of exercise-induced ECG changes or perfusion defects on SPECT imaging. Frequent monomorphic PVCs noted during recovery. Normal LV size and function. Normal hemodynamic response. 1/10 chest pain reported at peak exercise with the observation of severe dyspnea on exertion. Dictated by: Su Holden D.O. on 05/13/2024 at 16:17 Approved by: Su Holden D.O. on 05/13/2024 at 16:21
== END ==
PROVIDERS: Referring Provider Internal Medicine Cardiovascular Disease; Visit Provider Internal Medicine Cardiovascular Disease
DX: R06.09 Other forms of dyspnea (principal)
CPT/HCPCS: 78452; 93017; A9502

== ENCOUNTER → 2024-10-31 10:07 | Outpatient (CLI) | payer OTHER, SELFPAY ==
[2022-12-20 07:00] VITALS: BMI 31.8
[2024-10-31 11:09] LABS: Add Manual Diff / Slide Review NO; Basophils Absolute Auto 100 /uL (0-100); Basophils Percent Auto 0.7 % (0-2); Eosinophils Absolute Auto 100 /uL (0-450); Eosinophils Percent Auto 1.8 % (2-4); Hematocrit 47.7 % (41-53); Hemoglobin 16.8 g/dL (13.5-17.5); Lymphocytes Absolute Auto 2300 /uL (1100-4500); Lymphocytes Percent Auto 30.9 % (25-40); Mean Corpuscular HGB Conc 35.3 % (30-36); Mean Corpuscular Hemoglobin 31.4 PG (26-34); Monocytes Absolute Auto 700 /uL (0-900); Monocytes Percent Auto 9.3 % (3-14); Neutrophils Absolute Auto 4300 /uL (1500-7000); Neutrophils Percent Auto 57.3 % (50-75); Platelet Count 220 X10^3/uL (150-400); Red Blood Cell Count 5.36 X10^6/uL (4.5-5.9); Red Cell Distribution Width 13.3 % (11.6-14.8); White Blood Cell Count 7.6 X10^3/uL (4.5-11.0)
[2024-10-31 11:54] LABS: Alanine Aminotransferase 25 IU/L (<50); Albumin 4.8 g/dL (3.5-5.0); Albumin Globulin Ratio 1.9 (1.0-2.8); Alkaline Phosphatase 66 U/L (38-126); Aspartate Aminotransferase 30 IU/L (17-59); BUN Creatinine Ratio 15.7 (6-22); Bilirubin Total 0.7 mg/dL (0.2-1.3); Blood Urea Nitrogen 14 mg/dL (9-20); Calcium 10.4 mg/dL (8.4-10.2); Carbon Dioxide 23 mmol/L (22-32); Chloride 105 mmol/L (98-107); Estimated Glomerular Filt Rate > 60 mL/min (>60); Globulin 2.5 g/dL (1.7-4.1); Glucose 95 mg/dL (70-100); HEMOLYSIS < 15 (0-50); Potassium 4.7 mmol/L (3.4-5.1); Sodium 139 mmol/L (137-145); Total Protein 7.3 g/dL (6.3-8.2)
== END ==
LOC: LAB 10:08
PROVIDERS: Referring Provider Internal Medicine Cardiovascular Disease; Visit Provider Internal Medicine Cardiovascular Disease
DX: Z95.810 Presence of automatic (implantable) cardiac defibrillator (principal)
CPT/HCPCS: 36415; 80053; 85025

== ENCOUNTER → 2025-01-26 06:54 | Outpatient (CLI) | payer OTHER, SELFPAY ==
[2022-12-20 07:00] VITALS: BMI 31.8
[2025-01-26 08:24] LABS: Alanine Aminotransferase 22 IU/L (<50); Albumin 4.5 g/dL (3.5-5.0); Albumin Globulin Ratio 1.8 (1.0-2.8); Alkaline Phosphatase 59 U/L (38-126); Aspartate Aminotransferase 26 IU/L (17-59); BUN Creatinine Ratio 22.7 (6-22); Bilirubin Total 0.4 mg/dL (0.2-1.3); Blood Urea Nitrogen 17 mg/dL (9-20); Calcium 9.4 mg/dL (8.4-10.2); Carbon Dioxide 23 mmol/L (22-32); Chloride 108 mmol/L (98-107); Cholesterol 147 mg/dL (140-199); Estimated Glomerular Filt Rate > 60 mL/min (>60); Globulin 2.5 g/dL (1.7-4.1); Glucose 106 mg/dL (70-99); HDL Cholesterol 56 mg/dL (40-60); HEMOLYSIS < 15 (0-50); LDL Cholesterol Calculated 79 mg/dL (<100); Potassium 4.4 mmol/L (3.4-5.1); Sodium 140 mmol/L (137-145); Triglycerides 59 mg/dL (35-150)
== END ==
PROVIDERS: PCP Family Medicine; Referring Provider Family Medicine; Visit Provider Family Medicine
DX: Z13.6 Encounter for screening for cardiovascular disorders (principal)
CPT/HCPCS: 36415; 80053; 80061

== ENCOUNTER → 2025-02-09 07:43 | Outpatient (CLI) | payer OTHER, SELFPAY ==
[2022-12-20 07:00] VITALS: BMI 31.8
== END ==
PROVIDERS: PCP Family Medicine; Referring Provider Family Medicine; Visit Provider Family Medicine
DX: R73.09 Other abnormal glucose (principal)
CPT/HCPCS: 36415; 83036

== ENCOUNTER 2025-05-05 09:26 | Emergency (ER) | payer OTHER, SELFPAY ==
[2022-12-20 07:00] VITALS: BMI 31.8
--- NOTE | 2025-05-05 09:28 | ED.UPPEXIN ---
HPI - Extremity Injury (Upper) General Chief Complaint: Wound/Laceration Stated Complaint: Rt Hand Wound Time Seen by Provider: 05/05/25 09:28 History of Present Illness HPI narrative: Patient is a 59-year-old male history of HOCM status post ablation in 2010 with AICD placement in December 31, 2011 not on any blood thinners comes into the ED from home evaluation of cut to the back of the right hand, states that he was using a metal saw and the piece of popping that he was cutting kicked back and he bumped his hand onto the saw, was wearing glove is right-handed up-to-date on his tetanus. Not on any blood thinners denies any other injuries Related Data Home Medications ?Medication ?Instructions ?Recorded ?Confirmed [id number] 1 tab PO Q4-6H PRN 01/12/25 01/12/25 tablet nebivolol 10 mg tablet (Bystolic) 10 mg PO DAILY 01/12/25 01/12/25 Allergies Allergy/AdvReac Type Severity Reaction Status Date / Time diltiazem AdvReac Fatigued Verified 01/12/25 10:57 metoprolol AdvReac dyspnea Verified 01/12/25 10:57 nitroglycerin AdvReac unknown Verified 01/12/25 10:57 Review of Systems Review of Systems Narrative: General: Denies fever, chills, weight loss HEENT: Denies headache, eye drainage, eye irritation, head trauma, sore throat, voice change Cardiovascular: Denies any chest pain, palpitations, tachycardia Respiratory: Denies any shortness of breath, cough, wheeze, stridor GI/: Denies any abdominal pain, nausea, vomiting, diarrhea, bright red blood per rectum, melanotic stools, urinary frequency, urinary retention, dysuria, hematuria MSK: Denies any joint pain, muscle pains, swelling Skin: Cut to the back of the right hand Neuro: Denies any headache, lightheadedness, dizziness, fainting, weakness Psych: Denies SI/HI Patient History Medical History History of cardioversion Hypertrophic cardiomyopathy Presence of combination internal cardiac defibrillator (ICD) and pacemaker Surgical History History of cardiac radiofrequency ablation Social History household members: spouse Smoking Status: Never smoker alcohol intake: former Exam Narrative Exam Narrative: General: Cooperative, well-developed, not in acute distress HEENT: Normocephalic, atraumatic, PERRLA, normal sclera, eyelids normal Neck: Active full range of motion, atraumatic Chest: Normal to inspection, negative crepitus, no overlying erythema ecchymosis Respiratory: Normal respiratory effort, not in acute respiratory distress, clear to auscultation bilaterally negative cough, wheeze, tachypnea, rhonchi, rales Cardiology: Regular rate rhythm negative gallop, murmur, rubs GI/: No tenderness to palpation, soft, non rigid, normal to inspection, exam deferred MSK: Full active range of motion in all 4 extremities, atraumatic, no tenderness to palpation of any bony prominences Skin: Superficial laceration of the back of the right hand a proximally 2 cm in length, no foreign bodies no bony exposure, neurovascularly intact otherwise Neuro: Alert awake oriented x3, moves all 4 extremities spontaneously, cranial nerves intact, able to answer all questions appropriately follows commands appropriately Psych: Cooperative, negative suicidal or homicidal ideations Initial Vital Signs Initial Vital Signs: Vital Signs Temperature 98.4 F 05/05/25 09:34 Pulse Rate 56 L 05/05/25 09:34 Respiratory Rate 18 05/05/25 09:34 Blood Pressure 135/76 05/05/25 09:34 Pulse Oximetry 98 05/05/25 09:34 Oxygen Delivery Method Room Air 05/05/25 09:34 Procedures Laceration Repair Laceration 1: Time of procedure: 09:46 Site: hand Side (If applicable): right Size (cm): 2 Description: linear Depth: simple, single layer Local Anesthetic: lidocaine 1% Amount of anesthesia used (mL): 2 Pre-repair: wound explored, irrigated extensively and deep structures intact Skin layer closed with: other (Ethilon) Skin layer suture size: 4-0 Number of sutures: 4 Technique: simple, interrupted Course Vital Signs Vital signs: Vital Signs - 8 hr 05/05/25 09:34 Temperature 98.4 F Pulse Rate 56 L Respiratory Rate 18 Blood Pressure 135/76 Pulse Oximetry 98 Oxygen Delivery Method Room Air MDM - Extremity Injury (Upper) MDM Narrative Medical decision making narrative: 59-year-old male presenting for laceration to the back of his right hand was using a saw for metal tubing states that he was wearing gloves states that the metal tube kicked back and he bumped his hand onto the blade, states that he is not on any blood thinners denies any other injuries at this time. On exam he has a very superficial laceration to the back of the right hand, no bony exposure, no foreign bodies was thoroughly irrigated had bedside laceration repair, did place 4 sutures, 4-0 Ethilon. No further imaging workup required patient up-to-date on his tetanus. Strict return precautions given he verbalized understanding and agrees with being discharged home with outpatient follow up Discharge Plan Departure Patient Disposition: Home Clinical Impression: Hand laceration Instructions: How to Care for a Laceration After Repair, DI for Laceration Repair Activity Restrictions/Additional Instructions: Please follow up with your primary care doctor as needed You have 4 sutures that need to be removed in a proximally 1 week Please read the discharge instructions sheet carefully and bring all papers to all doctor follow-up visits, as it may contain information that your doctor may want to see. Disease processes change and evolve, if your symptoms worsen or if you develop any new symptoms that are concerning to you please return for evaluation. Your evaluation today does not show any evidence of any life-threatening/serious illnesses requiring admission to the hospital or surgery. Please follow-up with your doctor for re-evaluation in approximately 1 day. Seek immediate medical attention for any worrisome symptoms. *If you do not have a primary care provider please contact the [facility] Resource line at [phone]. They will ask some questions about your medical history and help get you set up with a doctor in the community. Prescriptions: No Action [id number] Tablet 1 tab PO Q4-6H PRN nebivolol [Bystolic] 10 mg tablet 10 mg PO DAILY Referrals: Ramya Fair MD [Primary Care Provider, Family Practice] Stand Alone Forms: Patient Portal/API
[2025-05-05 09:34] VITALS: BP 135/76; PULSE 56; RESP 18; TEMP 36.9; O2SAT 98; BMI 31.1
== END 2025-05-05 09:55 | disposition home or self-care (01) ==
PROVIDERS: Emergency Provider Student in an Organized Health Care Education/Training Program; PCP Family Medicine
DX: S61.411A Laceration without foreign body of right hand, initial encounter (principal); W26.9XXA Contact with unspecified sharp object(s), initial encounter
CPT/HCPCS: 12001; 99282; 99283